=== PATIENT | male | born 1990 | race Caucasian/White ===

== ENCOUNTER 2018-11-15 08:18 | Inpatient (IN) | payer SELFPAY ==
[2018-11-15] VITALS (15 sets, daily range): BP systolic 90–119; BP diastolic 53–73
[~2018-11-15] VITALS: Ht 172.7 cm; Wt 78.0 kg
[2018-11-15] MEDS ORDERED: IV NORMAL SALINE 1000ML BAG 1,000 ML IV ONE (10:00)
[2018-11-15] MEDS: IV NORMAL SALINE 1000ML BAG 1,000 ML IV SCH (10:00)
--- NOTE | 2018-11-15 10:00 | NUR ---
Pt arrived to ICU per ambulance. A&OX4. Placed on ekg monitor. VSS. Temp of 102. Pt c/o generalized pain. Dr. Stafford paged and notified. Orders received.
[2018-11-15] MEDS: fentaNYL PF VIAL 100 MCG/2 ML VIAL IV PRN ×6 (10:18→22:41)
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
[2018-11-15] MEDS ORDERED: PIP/TAZO PER PHARMACY MC PRN (11:15)
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
[2018-11-15] MEDS ORDERED: PIPERACILLIN/TAZOBACTAM 3.375 GM in IV NORMAL SALINE 50ML 50 ML IV SCH (12:00)
[2018-11-15] MEDS: CEFEPIME HCL IV Push 1 GM VIAL. IVP SCH ×2 (12:23→21:51)
[2018-11-15] MEDS: VANCOMYCIN PER PHARMACY MC PRN ×4 (13:10→15:51)
--- NOTE | 2018-11-15 13:16 | NUR ---
Pharmacy Vancomycin Dosing Note S:Consulted to monitor and dose vancomycin started 11/15/18. O:QUINTON VILLAGOMEZ is a 28 year old M with Sepsis . Height: feet, inches Weight: 73kg [place] Body Weight: Adjusted Body Weight: Dosing Weight: Actual Other Antibiotics: CEFE[DRAGAN LABS: Last BUN: Last Creatinine: 73 Creatinine Clearance: 1.5 mL/min Last WBC: Last Procalcitonin: OREDERED. Tmax (past 24 hours): Microbiology: I/O: Drug Levels: Last level: on at Last dose given 11/15/18 at 0600 Vancomycin Dosing: Loading Dose: 1750 mg x1 Dosing Weight: Actual Target Trough: 10-20 A: Based on: [] LOADING DOSE GIVEN AT [facility] THIS AM P: 1. [g RX.ACTION] Vancomycin 1000 mg IV q24h 2. Follow up Trough level on 11/16/18 at 1730 3. Pharmacy will continue to monitor, follow and adjust therapy as needed. FROILAN SANCHEZ [facility], 11/15/18 1875
--- NOTE | 2018-11-15 13:20 | NUR ---
Pharmacy Vancomycin Dosing Note S:Consulted to monitor and dose vancomycin started 11/15/18. O:QUINTON VILLAGOMEZ is a 28 year old M with Sepsis . Height: feet, inches Weight: 72 kg [place] Body Weight: Adjusted Body Weight: Dosing Weight: Actual Other Antibiotics: CEFE[DRAGAN LABS: Last BUN: Last Creatinine: 73 Creatinine Clearance: 1.5 mL/min Last WBC: Last Procalcitonin: OREDERED. Tmax (past 24 hours): Microbiology: I/O: Drug Levels: Last level: on at Last dose given 11/15/18 at 0600 Vancomycin Dosing: Loading Dose: 1750 mg x1 Dosing Weight: Actual Target Trough: 15-20 A: Based on: []VANCOMYCIN 1.75GM IV BOLUS GIVEN AT [facility] THIS AM, P: 1. [g RX.ACTION] Vancomycin 1000 mg IV q24h 2. Follow up Trough level on 11/16/18 at 1730 3. Pharmacy will continue to monitor, follow and adjust therapy as needed. FROILAN SANCHEZ [facility], 11/15/18 1320
--- NOTE | 2018-11-15 13:23 | NUR ---
Pharmacy Vancomycin Dosing Note S:Consulted to monitor and dose vancomycin started 11/15/18. O:QUINTON VILLAGOMEZ is a 28 year old M with Sepsis . Height: feet, inches Weight: kg [place] Body Weight: Adjusted Body Weight: Dosing Weight: Actual Other Antibiotics: CEFE[DRAGAN LABS: Last BUN: Last Creatinine: 73 Creatinine Clearance: 1.5 mL/min Last WBC: Last Procalcitonin: OREDERED. Tmax (past 24 hours): Microbiology: I/O: Drug Levels: Last level: on at Last dose given 11/15/18 at 0600 Vancomycin Dosing: Loading Dose: 1750 mg x1 Dosing Weight: Actual Target Trough: 15-20 A: Based on: []VANCOMYCIN 1.75GM IV BOLUS GIVEN AT [facility], P: 1. [g RX.ACTION] Vancomycin 1000 mg IV q24h 2. Follow up Trough level on 11/16/18 at 1730 3. Pharmacy will continue to monitor, follow and adjust therapy as needed. FROILAN SANCHEZ [facility], 11/15/18 3643
[2018-11-15] MEDS: diphenhydrAMINE 50 MG/ML VIAL IVP PRN ×2 (14:46→20:43)
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
[2018-11-15] MEDS: VANCOMYCIN 1 GM in IV NORMAL SALINE 250ML 250 ML IV SCH (17:51)
[2018-11-15] MEDS: MORPHINE SULFATE 4 MG/ML VIAL. IV PRN (21:09)
[2018-11-15] MEDS ORDERED: PROPOFOL 0 ML IV ONE (23:09)
[2018-11-16] VITALS (15 sets, daily range): BP systolic 94–142; BP diastolic 51–97
[2018-11-16] MEDS: MORPHINE SULFATE 4 MG/ML VIAL. IV PRN ×6 (00:42→23:21)
[2018-11-16] MEDS: IV NORMAL SALINE 1000ML BAG 1,000 ML IV SCH (01:14)
[2018-11-16] MEDS: fentaNYL PF VIAL 100 MCG/2 ML VIAL IV PRN ×7 (02:48→22:01)
[2018-11-16] MEDS: diphenhydrAMINE 50 MG/ML VIAL IVP PRN ×4 (04:43→23:20)
[2018-11-16 05:30] LABS: BASO % 0 % (0-3); EOS % 1 % (0-3); HEMATOCRIT 30.2 % (39.0-53.0); HEMOGLOBIN 10.8 g/dL (13.0-17.5); LYMPH # 0.5 x10^3/uL (1.0-4.8); LYMPH % 11 % (24-48); MEAN CORPUSCULAR HEMOGLOBIN 33 pg (25-35); MEAN CORPUSCULAR HGB CONC 36 g/dL (31-37); MEAN CORPUSCULAR VOLUME 91 fL (79-100); MONO # 0.7 x10^3/uL (0.0-1.1); MONO % 17 % (0-9); NEUT # 3.1 x10^3uL (1.8-7.7); NEUT % 71 % (31-73); PLATELET COUNT 70 x10^3/uL (140-400); RED BLOOD COUNT 3.31 x10^6/uL (4.30-5.70); RED CELL DISTRIBUTION WIDTH 13.2 % (11.5-14.5); WHITE BLOOD COUNT 4.3 x10^3/uL (4.0-11.0)
[2018-11-16 05:54] LABS: ALBUMIN 2.2 g/dL (3.4-5.0); ALBUMIN/GLOBULIN RATIO 0.8 (1.0-1.7); CALCIUM 7.4 mg/dL (8.5-10.1); CREATININE 0.9 mg/dL (0.7-1.3); GFR 100.5; TOTAL BILIRUBIN 0.6 mg/dL (0.2-1.0); TOTAL PROTEIN 4.8 g/dL (6.4-8.2)
[2018-11-16 05:56] LABS: POTASSIUM 2.9 mmol/L (3.5-5.1)
[2018-11-16] MEDS: VANCOMYCIN 1 GM in IV NORMAL SALINE 250ML 250 ML IV SCH ×3 (06:38→22:00)
[2018-11-16] MEDS: CEFEPIME HCL IV Push 1 GM VIAL. IVP SCH ×3 (06:38→22:00)
[2018-11-16] MEDS ORDERED: POTASSIUM CHLORIDE 20 MEQ TABLET.ER. PO ONE ×3 (07:00→09:00)
[2018-11-16] MEDS: VANCOMYCIN PER PHARMACY MC PRN ×3 (07:20→07:28)
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
[2018-11-16] MEDS: LACTOBACILLUS RHAMNOSUS GG 1 CAPSULE. PO SCH ×2 (09:59→20:29)
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
[2018-11-16 12:16] LABS: CALCIUM 7.6 mg/dL (8.5-10.1); POTASSIUM 3.9 mmol/L (3.5-5.1)
[2018-11-16] MEDS: POTASSIUM CL 40MEQ IN 0.9%NACL 1,000 ML IV SCH (13:51)
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
[2018-11-16] MEDS: ACETAMINOPHEN 325 MG TABLET. PO PRN ×2 (18:24→22:00)
[2018-11-17] MEDS: POTASSIUM CL 40MEQ IN 0.9%NACL 1,000 ML IV SCH ×2 (01:50→18:03)
[2018-11-17] MEDS: fentaNYL PF VIAL 100 MCG/2 ML VIAL IV PRN ×3 (02:11→08:34)
[2018-11-17 02:19] VITALS: BP 100/66
[2018-11-17] MEDS: MORPHINE SULFATE 4 MG/ML VIAL. IV PRN ×5 (03:11→23:24)
[2018-11-17] MEDS: diphenhydrAMINE 50 MG/ML VIAL IVP PRN ×3 (05:14→21:25)
[2018-11-17] MEDS: CEFEPIME HCL IV Push 1 GM VIAL. IVP SCH ×3 (05:15→22:32)
[2018-11-17] MEDS: ACETAMINOPHEN 325 MG TABLET. PO PRN ×2 (05:22→23:24)
[2018-11-17 06:19] LABS: BASO % 0 % (0-3); EOS # 0.1 x10^3/uL (0.0-0.7); EOS % 2 % (0-3); HEMATOCRIT 31.6 % (39.0-53.0); LYMPH # 0.6 x10^3/uL (1.0-4.8); LYMPH % 12 % (24-48); MEAN CORPUSCULAR HEMOGLOBIN 32 pg (25-35); MEAN CORPUSCULAR HGB CONC 35 g/dL (31-37); MEAN CORPUSCULAR VOLUME 92 fL (79-100); MONO # 0.9 x10^3/uL (0.0-1.1); MONO % 16 % (0-9); NEUT # 3.8 x10^3uL (1.8-7.7); NEUT % 70 % (31-73); PLATELET COUNT 107 x10^3/uL (140-400); RED BLOOD COUNT 3.43 x10^6/uL (4.30-5.70); RED CELL DISTRIBUTION WIDTH 13.5 % (11.5-14.5); WHITE BLOOD COUNT 5.4 x10^3/uL (4.0-11.0)
[2018-11-17 06:29] LABS: ALBUMIN 2.2 g/dL (3.4-5.0); ALBUMIN/GLOBULIN RATIO 0.8 (1.0-1.7); CALCIUM 7.9 mg/dL (8.5-10.1); CREATININE 0.8 mg/dL (0.7-1.3); GFR 115.1; POTASSIUM 4.1 mmol/L (3.5-5.1); TOTAL BILIRUBIN 0.7 mg/dL (0.2-1.0); TOTAL PROTEIN 5.1 g/dL (6.4-8.2)
[2018-11-17 06:30] LABS: VANC TR 10.5 mcg/mL (10.0-20.0)
[2018-11-17] MEDS: VANCOMYCIN PER PHARMACY MC PRN ×2 (06:47→06:55)
--- NOTE | 2018-11-17 06:47 | NUR ---
Pharmacy Vancomycin Dosing Note S:Consulted to monitor and dose vancomycin started 11/15/18. O:QUINTON VILLAGOMEZ is a 28 year old M with Cellulitis . Height: 5 feet, 8 inches Weight: 69.083086 kg [place] Body Weight: 68.40 Adjusted Body Weight: 69.84 Dosing Weight: Actual Other Antibiotics: CEFE[DRAGAN LABS: Last BUN: Last Creatinine: >100 Creatinine Clearance: 0.9 mL/min Last WBC: 4.3 Last Procalcitonin: 4.8 Tmax (past 24 hours): 101.5 Microbiology: NONE ORDER I/O: 3960/4725 Drug Levels: Last Trough level: 10.3 on 11/16/18 at 1730 Last dose given 11/15/18 at 0600 Vancomycin Dosing: Loading Dose: 1750 mg x1 Dosing Weight: Actual Target Trough: 10-20 A: Based on: TROUGH P: 1. [g RX.ACTION] Vancomycin 1000 mg IV q8h 2. Follow up Trough level on 11/16/18 at 1730 3. Pharmacy will continue to monitor, follow and adjust therapy as needed. EMILY YATES [facility], 11/17/18 0647
--- NOTE | 2018-11-17 06:55 | NUR ---
Pharmacy Vancomycin Dosing Note S:Consulted to monitor and dose vancomycin started 11/15/18. O:QUINTON VILLAGOMEZ is a 28 year old M with Cellulitis Sepsis . Height: 5 feet, 8 inches Weight: 69.107535 kg [place] Body Weight: 68.40 Adjusted Body Weight: 69.84 Dosing Weight: Actual Other Antibiotics: CEFE[DRAGAN LABS: Last BUN: Last Creatinine: >100 Creatinine Clearance: 0.9 mL/min Last WBC: 4.3 Last Procalcitonin: 4.8 Tmax (past 24 hours): 101.5 Microbiology: NONE ORDER I/O: 3960/4725 Drug Levels: Last Trough level: 10.3 on 11/17/18 at 0530 Last dose given 11/15/18 at 0600 Vancomycin Dosing: Loading Dose: 1750 mg x1 Dosing Weight: Actual Target Trough: 15-20 A: Based on: []TROUGH P: 1. [g RX.ACTION] Vancomycin 1250 mg IV q8h 2. Follow up Trough level on 11/18/18 at 0530 3. Pharmacy will continue to monitor, follow and adjust therapy as needed. EMILY YATES [facility], 11/17/18 0655 Addendum: 11/17/18 at 0656 by EMILY YATES [facility] PHA INCREASED DOSE 1.25 GM Q8H TROUGH 11/18 0530 Signed: 11/17/18 at 0656 by EMILY YATES [facility] PHA
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
[2018-11-17 07:41] VITALS: BP 114/70
[2018-11-17] MEDS: VANCOMYCIN 1.25 GM in IV NORMAL SALINE 250ML 250 ML IV SCH ×3 (07:41→22:34)
[2018-11-17] MEDS: LACTOBACILLUS RHAMNOSUS GG 1 CAPSULE. PO SCH ×2 (09:00→22:33)
[2018-11-17] MEDS ORDERED: BENZOCAINE ONE 20% MUCOSAL SPRAY. (09:09)
[2018-11-17] MEDS ORDERED: LIDOCAINE 2% VISCOUS 15 ML SOLUTION. ONE (09:09)
[2018-11-17] MEDS ORDERED: LIDOCAINE 2% JELLY 6ML IN APPLICATOR. MM ONE (09:15)
[2018-11-17] MEDS ORDERED: BENZOCAINE ONE 20% MUCOSAL SPRAY. MM (09:30)
[2018-11-17] MEDS ORDERED: LIDOCAINE 2% VISCOUS 15 ML SOLUTION. SWSW ONE (09:30)
[2018-11-17] MEDS ORDERED: IV RINGERS,LACTATED 1000ML 1,000 ML IV SCH (10:00)
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
[2018-11-17] MEDS ORDERED: PROPOFOL 40 ML IV ONE (10:09)
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
--- NOTE | 2018-11-17 14:31 | CARD ---
MR#: [id number] Date of Study: 11/17/2018 Ordering Physician: TOPHER WALTON, Referring Physician: TERRY GAITAN Tech: Maru Paz JAE APPROVED REPORT EXAM: Two-dimensional and M-mode echocardiogram with Doppler and color Doppler. INDICATION Endocarditis Reason For Test : Rule out endocarditis. PROCEDURE After obtaining informed consent, patient underwent transesophageal echo in the PACU. Type of Sedation : General Anesthesia Sedation was administered by Dr Zhu. Sedation was achieved with Propofol 260mg intravenously. Throughout the procedure, the blood pressure, pulse oximetry, cardiac rhythm, and rate were monitored . LEFT VENTRICLE The left ventricle is normal size. There is normal left ventricular wall thickness. The left ventricu lar systolic function is normal. The Ejection Fraction is 60%. There is normal LV segmental wall aundrea on. RIGHT VENTRICLE The right ventricle is normal size. There is normal right ventricular wall thickness. The right ventr icular systolic function is normal. Small pericardial effusion. ATRIA The left atrium size is normal. The right atrium size is normal. There is a possible small PFO seen b y color imaging, agitated contrast saline was not performed on this study. There is no thrombus noted in the left atrial appendage. AORTIC VALVE The aortic valve is normal in structure and function. The aortic valve is trileaflet. Doppler and Col or Flow revealed no significant aortic regurgitation. There is no significant aortic valvular stenosi s. There is no aortic valvular vegetation. MITRAL VALVE The posterior mitral valve leaflet has a 1.10cm x 0.81cm endodensity on the leaflet. There is systoli c anterior motion of the mitral valve with a possible ruptured chordae seen in the LVOT. There is no evidence of mitral valve prolapse. There is no mitral valve stenosis. Doppler and Color-flow revealed mild mitral regurgitation. TRICUSPID VALVE The tricuspid valve is normal in structure and function. Doppler and Color Flow revealed trace tricus pid regurgitation. There is no tricuspid valve prolapse or vegetation. There is no tricuspid valve st enosis. PULMONIC VALVE The pulmonary valve is normal in structure and function. Doppler and Color Flow revealed no pulmonic valvular regurgitation. There is no pulmonic valvular stenosis. GREAT VESSELS The aortic root is normal in size. The ascending aorta is normal in size. Critical Notification Critical Value: No <Conclusion> The left ventricular systolic function is normal. The Ejection Fraction is 60%. There is normal LV segmental wall motion. Echogenic mass noted on posterior mitral valve leaflet measuring 1.10cm x 0.81cm consistent with en docarditis. Possible ruptured mitral valve chordae seen extending into left ventricular outflow tract in systole. Mild eccentric mitral regurgitation. Trace tricuspid regurgitation. There is small pericardial effusion. Signed by : Topher Walton, Electronically Approved : 11/17/2018 14:30:28
[2018-11-17 15:02] VITALS: BP 122/78
[2018-11-17 19:17] VITALS: BP 113/78
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
[2018-11-17 23:21] VITALS: BP 118/65
[2018-11-18 03:10] VITALS: BP 114/78
[2018-11-18] MEDS: POTASSIUM CL 40MEQ IN 0.9%NACL 1,000 ML IV SCH (03:16)
[2018-11-18] MEDS: MORPHINE SULFATE 4 MG/ML VIAL. IV PRN ×2 (03:17→07:57)
[2018-11-18] MEDS: diphenhydrAMINE 50 MG/ML VIAL IVP PRN ×4 (03:20→21:23)
[2018-11-18] MEDS: CEFEPIME HCL IV Push 1 GM VIAL. IVP SCH (05:26)
[2018-11-18 06:41] LABS: VANC TR 16.9 mcg/mL (10.0-20.0)
[2018-11-18] MEDS: VANCOMYCIN PER PHARMACY MC PRN (06:48)
--- NOTE | 2018-11-18 06:49 | NUR ---
Pharmacy Vancomycin Dosing Note S:Consulted to monitor and dose vancomycin started 11/15/18. O:QUINTON VILLAGOMEZ is a 28 year old M with Cellulitis Sepsis . Height: 5 feet, 8 inches Weight: 66.006708 kg [place] Body Weight: 68.40 Adjusted Body Weight: 69.84 Dosing Weight: Actual Other Antibiotics: CEFE[DRAGAN LABS: Last BUN: Last Creatinine: >100 Creatinine Clearance: 0.9 mL/min Last WBC: 4.3 Last Procalcitonin: 4.8 Tmax (past 24 hours): 101.5 Microbiology: NONE ORDER I/O: 3960/4725 Drug Levels: Last Trough level: 16.9 on 11/18/18 at 0530 Last dose given 11/15/18 at 0600 Vancomycin Dosing: Loading Dose: 1750 mg x1 Dosing Weight: Actual Target Trough: 15-20 A: Based on: [TROUGH] P: 1. CONTINUE Vancomycin 1250 mg IV q8h 2. Follow up Trough level IF NEEDED 3. Pharmacy will continue to monitor, follow and adjust therapy as needed. EMILY YATES RPH, 11/18/1849 Signed: 11/18/18 at 0649 by EMILY YATES RPH PHA
[2018-11-18 07:00] VITALS: BP 109/68
[2018-11-18] MEDS: VANCOMYCIN 1.25 GM in IV NORMAL SALINE 250ML 250 ML IV SCH ×3 (07:59→23:51)
[2018-11-18] MEDS: LACTOBACILLUS RHAMNOSUS GG 1 CAPSULE. PO SCH ×2 (08:00→21:18)
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
[2018-11-18 11:00] VITALS: BP 107/66
[2018-11-18] MEDS: oxyCODONE ER 10 MG TAB.ER.12H PO SCH ×2 (11:53→21:18)
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
[2018-11-18] MEDS: oxyCODONE IR 5 MG TABLET PO PRN ×3 (15:01→23:46)
--- NOTE | 2018-11-18 16:20 | PDOC ---
JUNIE ALVARADO SALES PERSON 11/18/18 1620: CARDIO Progress Notes Date and Time Date of Service 11/18/2018 Time of Evaluation 1220 Subjective Subjective: No Chest Pain, No shortness of breath, No Palpitations Vitals Vitals Vital Signs Date Time Temp Pulse Resp B/P (MAP) Pulse Ox O2 Delivery O2 Flow Rate FiO2 11/18/18 15:01 18 95 Room Air 11/18/18 11:00 99.7 92 107/66 (80) 99.7 11/18/18 08:00 2.0 Weight Weight [ ] Input and Output Intake and Output Intake and Output 11/18/18 07:00 Intake Total 1860 ml Output Total 6300 ml Balance -4440 ml Intake Oral 1160 ml IV Total 700 ml Output Urine Total 6300 ml Laboratory Labs Laboratory Tests Test 11/18/18 06:15 Vancomycin Level Trough 16.9 mcg/mL (10.0-20.0) Vancomycin Last Dose Date 11/17/18 Vancomycin Last Dose Time 2300 Microbiology Micro Microbiology 11/15/18 Blood Culture - Preliminary, Resulted 11/15/18 Blood Culture Result 1 (JOSE ROBERTO) - Preliminary, Resulted Physical Exam HEENT: Neck Supple W Full Motion Chest: Symmetric LUNGS: Clear to Auscultation Heart: S1S2, RRR (SR), murmurs (4/6 systolic murmur to apex) Abdomen: Soft N/T Extremities: No Edema, No Calf Tenderness Neurology: alert, oriented, follow commands Assessment Assessment 1. Elevated troponin: demand mediated, type 2 with culprits below. EF and WM nml 2. Infective endocarditis/sepsis/fever: noted with 1 cm vegetation to posterior MV leaflet. ID following 3. MR: with possible rupture chordae tendinae. at this time no surgical recom mendation per CTS. No arrhythmias so far 4. Substance abuse: uses IV heroin Recommendations 1. Antibiotics per ID 2. Discussed lifestyle modification and cessation of substance abuse. 3. Will need outpt reevaluation in 2 months. High risk for noncomplaince given his limited financial means. 4. Consult social service. 5. Supportive care TOPHER WALTON MD 11/19/18 1534: CARDIO Progress Notes Assessment Assessment Patient seen and examined 11/18/18. Agree with MUSEUM PREPARATOR's assessment and plan. Continue intravenous antibiotics per ID team. Plan repeat SAVANAH once the antibiotic course is completed. JUNIE ALVARADO APRN Nov 18, 2018 16:20 TOPHER WALTON MD November 19, 2018 15:34
[2018-11-18 19:34] VITALS: BP 119/75
[2018-11-18] MEDS: ACETAMINOPHEN 325 MG TABLET. PO PRN (19:42)
[2018-11-18 23:52] VITALS: BP 126/79
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
[2018-11-19 03:51] VITALS: BP 119/70
[2018-11-19 04:44] LABS: BASO % 1 % (0-3); EOS # 0.2 x10^3/uL (0.0-0.7); EOS % 2 % (0-3); HEMATOCRIT 31.8 % (39.0-53.0); LYMPH # 0.9 x10^3/uL (1.0-4.8); LYMPH % 13 % (24-48); MEAN CORPUSCULAR HEMOGLOBIN 32 pg (25-35); MEAN CORPUSCULAR HGB CONC 35 g/dL (31-37); MEAN CORPUSCULAR VOLUME 92 fL (79-100); MONO # 0.8 x10^3/uL (0.0-1.1); MONO % 11 % (0-9); NEUT # 5.1 x10^3uL (1.8-7.7); NEUT % 73 % (31-73); PLATELET COUNT 239 x10^3/uL (140-400); RED BLOOD COUNT 3.44 x10^6/uL (4.30-5.70); RED CELL DISTRIBUTION WIDTH 13.2 % (11.5-14.5); WHITE BLOOD COUNT 7.1 x10^3/uL (4.0-11.0)
[2018-11-19] MEDS: oxyCODONE IR 5 MG TABLET PO PRN ×3 (05:15→22:47)
[2018-11-19] MEDS: diphenhydrAMINE 50 MG/ML VIAL IVP PRN ×2 (05:15→10:55)
[2018-11-19 05:36] LABS: ALBUMIN 2.2 g/dL (3.4-5.0); ALBUMIN/GLOBULIN RATIO 0.6 (1.0-1.7); C-REACTIVE PROTEIN 92.3 mg/L (0-3.3); POTASSIUM 4.3 mmol/L (3.5-5.1); TOTAL BILIRUBIN 0.4 mg/dL (0.2-1.0); TOTAL PROTEIN 5.9 g/dL (6.4-8.2)
[2018-11-19] MEDS: VANCOMYCIN 1.25 GM in IV NORMAL SALINE 250ML 250 ML IV SCH (06:13)
[2018-11-19 07:00] VITALS: BP 108/70
[2018-11-19] MEDS: LACTOBACILLUS RHAMNOSUS GG 1 CAPSULE. PO SCH ×2 (08:28→20:36)
[2018-11-19] MEDS: ACETAMINOPHEN 325 MG TABLET. PO PRN ×2 (08:28→16:08)
[2018-11-19] MEDS: oxyCODONE ER 10 MG TAB.ER.12H PO SCH ×2 (08:28→20:36)
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
[2018-11-19] MEDS: CEFTAROLINE FOSAMIL 600 MG in IV NORMAL SALINE 250ML 250 ML IV SCH ×2 (10:55→11:00)
[2018-11-19 11:00] VITALS: BP 135/98
[2018-11-19] MEDS: DAPTOmycin (GENERIC) IVPB 400 MG in IV NORMAL SALINE 50ML 50 ML IV SCH (11:00)
--- NOTE | 2018-11-19 11:30 | NUR ---
SS following up with discharge planning. Pt is from home and is currently on room air. Pt is self pay. [facility]CF[facility] is following for self pay status. No discharge needs noted at this time. SS will continue to follow for pending discharge needs.
[2018-11-19 15:00] VITALS: BP 125/69
--- NOTE | 2018-11-19 19:02 | NUR ---
SPOKE TO DR. GAITAN REGARDING PTS UPPER LEFT LEG AND 4 BUMPS THAT ARE EXTREMELY SORE, SWOLLEN RED AND HARD. ORDERS GIVEN. PT TO HAVE PICC LINE PLACED TONIGHT DUE TO NO IV ACCESS PERIPHERALLY. DEAN FROM PAT TEAM CAME AND SPOKE WITH THE PT THIS SHIFT.
[2018-11-19 19:14] VITALS: BP 110/67
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
[2018-11-19 22:43] VITALS: BP 110/68
[2018-11-20] MEDS: CEFTAROLINE FOSAMIL 600 MG in IV NORMAL SALINE 250ML 250 ML IV SCH ×3 (00:02→21:06)
--- NOTE | 2018-11-20 00:10 | RAD ---
Indication:picc placement TECHNIQUE:Portable AP chest X-ray COMPARISON:None FINDINGS: Right-sided PICC line is seen with its tip at the cavoatrial junction. Heart is normal in size. Lungs are clear. No pneumothorax or pleural effusion. Visualized bony thorax is within normal limits. IMPRESSION: No acute pulmonary process. Electronically signed by: Sandeep Salgado DO (11/20/2018 12:07 AM) [facility]
[2018-11-20] MEDS: ONDANSETRON PF 4 MG/2 ML VIAL. IV PRN (00:16)
[2018-11-20] MEDS: diphenhydrAMINE 50 MG/ML VIAL IVP PRN ×4 (00:17→22:36)
[2018-11-20 03:00] VITALS: BP 120/76
[2018-11-20] MEDS: ACETAMINOPHEN 325 MG TABLET. PO PRN (04:01)
[2018-11-20] MEDS: oxyCODONE IR 5 MG TABLET PO PRN ×3 (04:02→16:24)
[2018-11-20 07:00] VITALS: BP 123/74
--- NOTE | 2018-11-20 07:56 | RAD ---
Left thigh ultrasound, 11/19/2018: HISTORY: Thigh lump and redness, recently drained The area of clinical concern in the lateral left thigh was carefully scanned. Along the inferior aspect of this process there is a small ill-defined collection of hypoechoic areas measuring less than 1 cm. This area was reportedly drained earlier today. The current findings suggest minimal residual poorly marginated fluid. More superiorly in this region there is a 4 mm hypoechoic area located approximately 1 cm deep to the skin surface. There is a suggestion of a thickened hyperechoic rim. No large drainable fluid collection is identified. Electronically signed by: Te Garcia MD (11/20/2018 7:53 AM) [facility]
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
[2018-11-20] MEDS: LACTOBACILLUS RHAMNOSUS GG 1 CAPSULE. PO SCH ×2 (08:16→21:07)
[2018-11-20] MEDS: oxyCODONE ER 10 MG TAB.ER.12H PO SCH ×2 (08:17→21:07)
[2018-11-20 11:00] VITALS: BP 127/78
[2018-11-20] MEDS: DAPTOmycin (GENERIC) IVPB 400 MG in IV NORMAL SALINE 50ML 50 ML IV SCH (11:19)
[2018-11-20 14:51] VITALS: BP 131/80
[2018-11-20 19:21] VITALS: BP 123/71
[2018-11-20 22:21] VITALS: BP 115/70
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
[2018-11-21 03:20] VITALS: BP 115/66
[2018-11-21 07:36] VITALS: BP 116/75
[2018-11-21] MEDS: diphenhydrAMINE 50 MG/ML VIAL IVP PRN ×2 (08:38→16:23)
[2018-11-21] MEDS: oxyCODONE ER 10 MG TAB.ER.12H PO SCH ×2 (08:38→21:43)
[2018-11-21] MEDS: LACTOBACILLUS RHAMNOSUS GG 1 CAPSULE. PO SCH ×2 (08:38→21:43)
[2018-11-21] MEDS: CEFTAROLINE FOSAMIL 600 MG in IV NORMAL SALINE 250ML 250 ML IV SCH (08:39)
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
[2018-11-21 10:22] LABS: HEMATOCRIT 27.6 % (39.0-53.0); HEMOGLOBIN 9.6 g/dL (13.0-17.5); RED BLOOD COUNT 2.98 x10^6/uL (4.30-5.70); RED CELL DISTRIBUTION WIDTH 13.1 % (11.5-14.5); WHITE BLOOD COUNT 7.8 x10^3/uL (4.0-11.0)
[2018-11-21 10:39] LABS: ALBUMIN/GLOBULIN RATIO 0.5 (1.0-1.7); CALCIUM 7.4 mg/dL (8.5-10.1); POTASSIUM 4.3 mmol/L (3.5-5.1); TOTAL BILIRUBIN 0.5 mg/dL (0.2-1.0); TOTAL PROTEIN 5.8 g/dL (6.4-8.2)
[2018-11-21] MEDS: DAPTOmycin (GENERIC) IVPB 400 MG in IV NORMAL SALINE 50ML 50 ML IV SCH (10:45)
[2018-11-21 11:00] VITALS: BP 125/82
--- NOTE | 2018-11-21 12:14 | NUR ---
SS following up with discharge planning. Pt's RN contacted SS and reported that per ID pt needs 6-8 weeks of IV Dapto set up as outpatient at [facility]. Pt is self pay. SS contacted Chelsey Poe at [facility] and made request. [facility] contacted SS and reported that they could not accommodate pt's needs.
[2018-11-21 15:00] VITALS: BP 107/67
[2018-11-21] MEDS: oxyCODONE IR 5 MG TABLET PO PRN ×2 (16:23→20:03)
[2018-11-21 19:32] VITALS: BP 120/69
[2018-11-21] MEDS: IV NORMAL SALINE 1000ML BAG 1,000 ML IV SCH (20:03)
[2018-11-21] MEDS: ACETAMINOPHEN 325 MG TABLET. PO PRN (20:03)
[2018-11-21 20:22] LABS: CALCIUM 7.2 mg/dL (8.5-10.1); CREATININE 4.5 mg/dL (0.7-1.3); GFR 15.7; POTASSIUM 4.5 mmol/L (3.5-5.1)
--- NOTE | 2018-11-21 22:47 | NUR ---
Dr. Stafford was notified at beginning of shift of lab results from day shift of a notable change in patient creatinine and BUN from yesterday. A bladder scan was done and revealed 230cc, and stat labs were redrawn to confirm results. New lab results and scan results were reported to physician. Orders were received to contact infectious disease consult for antibiotic dose adjustment and a renal consult for the increased creatinine. IVF were also ordered and started by physician. Both consults were informed and orders also received from them.
[2018-11-21 22:57] VITALS: BP 112/64
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
[2018-11-22] MEDS: ACETAMINOPHEN 325 MG TABLET. PO PRN (00:44)
[2018-11-22] MEDS: oxyCODONE IR 5 MG TABLET PO PRN ×3 (00:44→22:32)
[2018-11-22 02:40] VITALS: BP 100/51
[2018-11-22 05:41] LABS: CALCIUM 7.4 mg/dL (8.5-10.1); CREATININE 4.8 mg/dL (0.7-1.3); GFR 14.6; POTASSIUM 4.5 mmol/L (3.5-5.1)
[2018-11-22] MEDS: IV NORMAL SALINE 1000ML BAG 1,000 ML IV SCH ×2 (06:16→17:42)
--- NOTE | 2018-11-22 06:18 | NUR ---
Pt bladder scanned at this time. His initial bladder scan was around 200 at beginning of shift. He voided 300 overnight. However he did receive 1000 in IVF overnight and has hx of retention. Bladder scan at this time was 306. He has no urge to void at this time. Will relay to oncoming nurse for need of pt to void in the next few hours.
[2018-11-22 07:40] VITALS: BP 111/66
--- NOTE | 2018-11-22 07:41 | RAD ---
EXAM: Vann scale and color Doppler renal artery sonogram. HISTORY: Renal insufficiency. TECHNIQUE: Vann scale and color Doppler sonographic imaging of the kidneys and renal arteries with spectral analysis was performed. COMPARISON: None. FINDINGS: The right kidney measures 15.4 cm [id number]. The left kidney measures 15.0 cm [id number]. There is echogenic renal parenchyma. No solid or cystic renal lesion is seen. There is no hydronephrosis. The peak systolic velocity within the right renal artery is 167 cm/s. The peak systolic velocity within the left renal artery is 155 cm/s. There are normal renal artery to aorta velocity ratios. IMPRESSION: 1. No Doppler evidence of greater than 60 percent stenosis within the renal arteries. 2. Echogenic renal fragment. This can be seen with medical renal disease. 3. Prominent renal size. This may be within limits for patient body habitus. Electronically signed by: Theresa Frost MD (11/22/2018 7:37 AM) [facility]
[2018-11-22] MEDS: LACTOBACILLUS RHAMNOSUS GG 1 CAPSULE. PO SCH ×2 (08:35→20:54)
[2018-11-22] MEDS: oxyCODONE ER 10 MG TAB.ER.12H PO SCH ×2 (08:36→20:55)
[2018-11-22 08:40] LABS: BILIRUBIN,URINE NEGATIVE (NEG); CLARITY,URINE CLEAR; COLOR,URINE YELLOW; NITRITE,URINE NEGATIVE (NEG); PROTEIN,URINE 100 mg/dL (NEG-TRACE); UROBILINOGEN,URINE 0.2 mg/dL (0.2 mg/dL)
[2018-11-22] MEDS: DAPTOmycin (GENERIC) IVPB 400 MG in IV NORMAL SALINE 50ML 50 ML IV SCH (08:46)
[2018-11-22 08:57] LABS: HYALINE CASTS, URINE FEW /HPF
[2018-11-22 08:58] LABS: SQUAMOUS EPITHELIAL CELL,UR FEW /LPF
[2018-11-22 09:04] LABS: GRANULAR CASTS,URINE OCCASIONAL /HPF
[2018-11-22 09:18] LABS: BACTERIA,URINE MOD /HPF (0-FEW); WAXY CASTS,URINE OCCASIONAL /HPF
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
[2018-11-22 11:25] VITALS: BP 104/71
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
[2018-11-22 15:36] VITALS: BP 112/60
[2018-11-22 18:34] VITALS: BP 108/61
[2018-11-22 23:00] VITALS: BP 120/72
--- NOTE | 2018-11-23 00:21 | NUR ---
CHANGE OF CARE NOTE: Pt in bed with no c/o pain at this time. agree with previous assessment will resume care and continue to monitor pt.
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
[2018-11-23 02:50] VITALS: BP 110/68
[2018-11-23] MEDS: IV NORMAL SALINE 1000ML BAG 1,000 ML IV SCH ×3 (04:19→21:45)
[2018-11-23 06:38] LABS: CALCIUM 7.5 mg/dL (8.5-10.1); CREATININE 4.6 mg/dL (0.7-1.3); GFR 15.3; POTASSIUM 4.4 mmol/L (3.5-5.1)
[2018-11-23 07:50] VITALS: BP 106/62
[2018-11-23] MEDS: LACTOBACILLUS RHAMNOSUS GG 1 CAPSULE. PO SCH ×2 (08:40→21:16)
[2018-11-23] MEDS: oxyCODONE ER 10 MG TAB.ER.12H PO SCH ×2 (08:40→21:17)
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
[2018-11-23 10:24] VITALS: BP 105/55
--- NOTE | 2018-11-23 12:02 | PDOC ---
Renal-Progress Notes Subjective Notes Notes NO NEW COMPLAINTS History of Present Illness Hx of present illness STABLE Vitals Vitals Vital Signs Date Time Temp Pulse Resp B/P (MAP) Pulse Ox O2 Delivery O2 Flow Rate FiO2 11/23/18 10:24 98.4 75 18 105/55 (72) 97 Room Air 98.4 Weight Weight [ ] I.O. Intake and Output Intake and Output 11/23/18 07:00 Intake Total 1240 ml Output Total 500 ml Balance 740 ml Intake Oral 1240 ml Output Urine Total 500 ml # Voids 3 Labs Labs Laboratory Tests Test 11/23/18 05:30 Sodium Level 133 mmol/L (136-145) Potassium Level 4.4 mmol/L (3.5-5.1) Chloride Level 102 mmol/L (98-107) Carbon Dioxide Level 20 mmol/L (21-32) Anion Gap 11 (6-14) Blood Urea Nitrogen 59 mg/dL (8-26) Creatinine 4.6 mg/dL (0.7-1.3) Estimated GFR (Cockcroft-Gault) 15.3 Glucose Level 123 mg/dL (70-99) Calcium Level 7.5 mg/dL (8.5-10.1) Creatine Kinase 23 U/L (39-308) Micro Micro Microbiology 11/20/18 Blood Culture - Preliminary, Resulted NO GROWTH AFTER 3 DAYS Review of Systems Constitutional: yes: alert, oriented Ears/Nose/Throat: Yes: no symptom reported Eyes: Yes: no symptom reported Pulmonary: Yes no symptom reported Cardiovascular: Yes no symptom reported Gastrointestional: Yes: no symptom reported Genitourinary: Yes: no symptom reported Musculoskeletal: Yes: no symptom reported Skin: Yes no symptom reported Psychiatric/Neurological: Yes: no symptom reported Endocrine: Yes: no symptom reported Physical Exam General Appearance: no apparent distress Skin: warm Respiratory: bilateral CTA Heart: S1S2 Abdomen: soft, bowel sounds present Genitourinary: bladder flat Extremities: pulses present Neurology: alert, oriented, follow commands Assessment Assessment IMP DIANNE WITH CR OF 4.6-NON OLIGURIC-ATN VS NEPHRITIS RECENT URINARY RETENTION WITH BLANCO NEED-OUT NOW IV DRUG USE ENDOCARDITIS SPLENIC INFARCTS PLAN UA HYDRATION ANTIBIOTICS RENAL SCAN PENDING IF RENAL FXN NOT BETTER BY AM WILL ORDER RENAL BIOPSY UPDATED PT CIARAN GARCÍA MD November 23, 2018 12:02
[2018-11-23] MEDS: oxyCODONE IR 5 MG TABLET PO PRN ×3 (14:31→22:59)
[2018-11-23 15:06] VITALS: BP 109/57
[2018-11-23 20:05] VITALS: BP 118/66
[2018-11-23 23:05] VITALS: BP 139/85
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
[2018-11-24] VITALS (15 sets, daily range): BP systolic 110–135; BP diastolic 61–83
[2018-11-24] MEDS: oxyCODONE IR 5 MG TABLET PO PRN ×4 (04:53→23:14)
[2018-11-24 05:39] LABS: HEMATOCRIT 27.5 % (39.0-53.0); HEMOGLOBIN 9.6 g/dL (13.0-17.5); RED BLOOD COUNT 2.98 x10^6/uL (4.30-5.70); WHITE BLOOD COUNT 10.2 x10^3/uL (4.0-11.0)
[2018-11-24 05:52] LABS: CREATININE 4.3 mg/dL (0.7-1.3); GFR 16.5; POTASSIUM 4.8 mmol/L (3.5-5.1)
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
[2018-11-24] MEDS: DAPTOmycin (GENERIC) IVPB 400 MG in IV NORMAL SALINE 50ML 50 ML IV SCH (09:17)
[2018-11-24] MEDS: LACTOBACILLUS RHAMNOSUS GG 1 CAPSULE. PO SCH ×2 (09:17→22:07)
[2018-11-24] MEDS: oxyCODONE ER 10 MG TAB.ER.12H PO SCH ×2 (09:17→22:07)
--- NOTE | 2018-11-24 09:59 | RAD ---
Radionuclide renal scan, 11/23/2018: HISTORY: Acute renal insufficiency The study is just now being presented for review. Imaging of the kidneys was performed following IV injection of 10 mCi of technetium 99m MAG3. There is prompt symmetric perfusion of the kidneys. Uptake of the radionuclide by the kidneys is slow with progressing increased activity in both kidneys over 30 minutes. The pattern is symmetric and is compatible with medical renal disease. Bladder activity does develop. IMPRESSION: Slow uptake of the radionuclide by both kidneys and severe bilateral parenchymal retention in a symmetric pattern compatible with medical renal disease. Electronically signed by: Te Garcia MD (11/24/2018 9:56 AM) [facility]
--- NOTE | 2018-11-24 10:50 | PDOC ---
Renal-Progress Notes Subjective Notes Notes NO NEW COMPLAINTS History of Present Illness Hx of present illness NO CHANGE Vitals Vitals Vital Signs Date Time Temp Pulse Resp B/P (MAP) Pulse Ox O2 Delivery O2 Flow Rate FiO2 11/24/18 09:18 Room Air 11/24/18 07:00 98.5 86 18 110/61 (77) 94 98.5 Weight Weight [ ] I.O. Intake and Output Intake and Output 11/24/18 07:00 Intake Total 4318 ml Output Total 2350 ml Balance 1968 ml Intake Oral 2118 ml IV Total 2200 ml Output Urine Total 2350 ml # Bowel Movements 1 Labs Labs Laboratory Tests Test 11/24/18 05:00 White Blood Count 10.2 x10^3/uL (4.0-11.0) Red Blood Count 2.98 x10^6/uL (4.30-5.70) Hemoglobin 9.6 g/dL (13.0-17.5) Hematocrit 27.5 % (39.0-53.0) Mean Corpuscular Volume 92 fL (79-100) Mean Corpuscular Hemoglobin 32 pg (25-35) Mean Corpuscular Hemoglobin Concent 35 g/dL (31-37) Red Cell Distribution Width 13.0 % (11.5-14.5) Platelet Count 412 x10^3/uL (140-400) Sodium Level 137 mmol/L (136-145) Potassium Level 4.8 mmol/L (3.5-5.1) Chloride Level 104 mmol/L (98-107) Carbon Dioxide Level 17 mmol/L (21-32) Anion Gap 16 (6-14) Blood Urea Nitrogen 55 mg/dL (8-26) Creatinine 4.3 mg/dL (0.7-1.3) Estimated GFR (Cockcroft-Gault) 16.5 Glucose Level 119 mg/dL (70-99) Calcium Level 8.0 mg/dL (8.5-10.1) Micro Micro Microbiology 11/20/18 Blood Culture - Preliminary, Resulted NO GROWTH AFTER 4 DAYS Review of Systems Constitutional: yes: alert, oriented Ears/Nose/Throat: Yes: no symptom reported Eyes: Yes: no symptom reported Pulmonary: Yes no symptom reported Cardiovascular: Yes no symptom reported Gastrointestional: Yes: no symptom reported Genitourinary: Yes: no symptom reported Musculoskeletal: Yes: no symptom reported Skin: Yes no symptom reported Psychiatric/Neurological: Yes: no symptom reported Endocrine: Yes: no symptom reported Physical Exam General Appearance: no apparent distress Skin: warm Respiratory: bilateral CTA Heart: S1S2 Abdomen: soft, bowel sounds present Genitourinary: bladder flat Extremities: pulses present Neurology: alert, oriented, follow commands Assessment Assessment IMP DIANNE WITH CR OF 4.3-NON OLIGURIC-ATN VS NEPHRITIS RECENT URINARY RETENTION WITH BLANCO NEED-OUT NOW IV DRUG USE ENDOCARDITIS SPLENIC INFARCTS PLAN UA HYDRATION ANTIBIOTICS RENAL SCAN PENDING RENAL BIOPSY ORDERED UPDATED PT CIARAN GARCÍA MD November 24, 2018 10:50
[2018-11-24 11:30] LABS: PROTHROMBIN TIME PATIENT 14.9 SEC (11.7-14.0)
--- NOTE | 2018-11-24 12:14 | NUR ---
SS following up with discharge planning. Pt is self pay and has a history of IV heroin use. Pt is needing outpatient IV Dapto for 6-8 weeks per ID. Pt is from [place]. Pt was denied at [facility] for outpatient set up at this time. Pt's RN reported that pt's dose has been changed to every other day. SS contacted [facility] again to discuss. SS has received no return call at this time. SS supervisor composing room notified. SS will continue to follow for discharge planning.
[2018-11-24] MEDS: IV NORMAL SALINE 1000ML BAG 1,000 ML IV SCH (13:03)
[2018-11-24] MEDS ORDERED: LIDOCAINE WITH 8.4% SOD BICARB 3 ML DISP.SYRIN. ONE (14:24)
[2018-11-24] MEDS ORDERED: MIDAZOLAM HCL/PF 2 MG/2 ML VIAL. ONE (14:36)
[2018-11-24] MEDS ORDERED: fentaNYL PF VIAL 100 MCG/2 ML VIAL ONE (14:36)
[2018-11-24] MEDS ORDERED: LIDOCAINE WITH 8.4% SOD BICARB 3 ML DISP.SYRIN. IJ ONE (15:00)
[2018-11-24] MEDS ORDERED: MIDAZOLAM HCL/PF 2 MG/2 ML VIAL. IV ONE (15:00)
[2018-11-24] MEDS ORDERED: fentaNYL PF VIAL 100 MCG/2 ML VIAL IV ONE (15:00)
--- NOTE | 2018-11-24 15:30 | RAD ---
Ultrasound guided left kidney biopsy 11/24/2018 Indication: Acute renal injury Discussion: The risks and benefits of the procedure were discussed the patient. Informed consent was obtained. A timeout procedure was performed. Ultrasound evaluation demonstrates unremarkable appearance of the left kidney. The overlying skin was prepped and draped using sterile barrier technique. 1% lidocaine was administered for local anesthesia. Under direct ultrasound guidance a 17-gauge guiding needles advanced to the peripheral inferior renal cortex. Multiple 18-gauge core biopsy samples were obtained and divided amongst formalin and Carmen 's solution. Gelfoam embolization of the biopsy tract was performed as a guiding needle was removed. Manual pressure was held. No immediate complications were identified. The procedure was performed under conscious sedation, including continuous cardiopulmonary monitoring via a dedicated sedation nurse. Face to face sedation time : 20 minutes Impression: Ultrasound guided left kidney biopsy
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
[2018-11-25 02:46] VITALS: BP 127/76
[2018-11-25 03:57] LABS: CALCIUM 8.2 mg/dL (8.5-10.1); CREATININE 4.2 mg/dL (0.7-1.3); POTASSIUM 4.7 mmol/L (3.5-5.1)
[2018-11-25] MEDS: IV NORMAL SALINE 1000ML BAG 1,000 ML IV SCH ×2 (05:16→12:46)
[2018-11-25 07:00] VITALS: BP 130/82
[2018-11-25] MEDS: ACETAMINOPHEN 325 MG TABLET. PO PRN (07:55)
[2018-11-25] MEDS: oxyCODONE ER 10 MG TAB.ER.12H PO SCH ×2 (07:55→19:34)
[2018-11-25] MEDS: LACTOBACILLUS RHAMNOSUS GG 1 CAPSULE. PO SCH ×2 (07:55→19:34)
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
[2018-11-25] MEDS: oxyCODONE IR 5 MG TABLET PO PRN ×2 (09:40→15:00)
[2018-11-25 11:00] VITALS: BP 118/65
--- NOTE | 2018-11-25 11:11 | PDOC ---
Renal-Progress Notes Subjective Notes Notes NO NEW COMPLAINTS History of Present Illness Hx of present illness STABLE Vitals Vitals Vital Signs Date Time Temp Pulse Resp B/P (MAP) Pulse Ox O2 Delivery O2 Flow Rate FiO2 11/25/18 10:42 Room Air 11/25/18 07:00 99.4 86 16 130/82 (98) 96 99.4 11/25/18 02:07 2.0 Weight Weight [ ] I.O. Intake and Output Intake and Output 11/25/18 07:00 Intake Total 1170 ml Output Total 1800 ml Balance -630 ml Intake Oral 120 ml IV Total 1050 ml Output Urine Total 1800 ml Labs Labs Laboratory Tests Test 11/25/18 03:40 Sodium Level 135 mmol/L (136-145) Potassium Level 4.7 mmol/L (3.5-5.1) Chloride Level 105 mmol/L (98-107) Carbon Dioxide Level 18 mmol/L (21-32) Anion Gap 12 (6-14) Blood Urea Nitrogen 47 mg/dL (8-26) Creatinine 4.2 mg/dL (0.7-1.3) Estimated GFR (Cockcroft-Gault) 17.0 Glucose Level 106 mg/dL (70-99) Calcium Level 8.2 mg/dL (8.5-10.1) Micro Micro Microbiology 11/20/18 Blood Culture - Final, Complete NO GROWTH AFTER 5 DAYS Review of Systems Constitutional: yes: alert, oriented Ears/Nose/Throat: Yes: no symptom reported Eyes: Yes: no symptom reported Pulmonary: Yes no symptom reported Cardiovascular: Yes no symptom reported Gastrointestional: Yes: no symptom reported Genitourinary: Yes: no symptom reported Musculoskeletal: Yes: no symptom reported Skin: Yes no symptom reported Psychiatric/Neurological: Yes: no symptom reported Endocrine: Yes: no symptom reported Physical Exam General Appearance: no apparent distress Skin: warm Respiratory: bilateral CTA Heart: S1S2 Abdomen: soft, bowel sounds present Genitourinary: bladder flat Extremities: pulses present Neurology: alert, oriented, follow commands Assessment Assessment IMP DIANNE WITH CR OF 4.3-NON OLIGURIC-ATN VS NEPHRITIS RECENT URINARY RETENTION WITH BLANCO NEED-OUT NOW IV DRUG USE ENDOCARDITIS SPLENIC INFARCTS S/P RENAL BX PLAN UA HYDRATION ANTIBIOTICS RENAL SCAN NOT VERY HELPFUL RENAL BIOPSY RESULTS PENDING WILL START STEROIDS UPDATED PT CIARAN GARCÍA MD November 25, 2018 11:11
[2018-11-25] MEDS ORDERED: predniSONE 20 MG TABLET PO ONE (11:15)
--- NOTE | 2018-11-25 13:27 | NUR ---
SS following up with discharge planning. The [facility] in [place] unable to provide outpatient IV Dapto for pt. SS discussed with Mayte Engel in pharmacy at [facility] and was notified that the Daptomycin is available for pt to receive at [facility]. Dr. Hagan contacted for script. SS contacted outpatient services and notified and will send referral once script is received. SS met with pt to discuss. Pt reported that he would find transportation to and from [place] to receive the medications every other day and was agreeable. Pt's RN and case management notified.
--- NOTE | 2018-11-25 13:55 | NUR ---
SS following up with discharge planning. SS received script for Daptomycin. SS phoned and faxed script for Daptomycin and referral to outpatient services at fax [phone].
[2018-11-25 15:00] VITALS: BP 128/84
[2018-11-25] MEDS: diphenhydrAMINE 50 MG/ML VIAL IVP PRN (19:33)
[2018-11-25] MEDS: predniSONE 20 MG TABLET PO SCH (19:34)
[2018-11-25 19:35] VITALS: BP 130/77
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
[2018-11-25 22:45] VITALS: BP 118/68
[2018-11-26 03:40] VITALS: BP 129/78
[2018-11-26] MEDS: ONDANSETRON PF 4 MG/2 ML VIAL. IV PRN (03:54)
[2018-11-26] MEDS: IV NORMAL SALINE 1000ML BAG 1,000 ML IV SCH ×3 (03:54→19:40)
[2018-11-26] MEDS: oxyCODONE IR 5 MG TABLET PO PRN ×3 (03:54→16:16)
[2018-11-26 04:47] LABS: CALCIUM 8.3 mg/dL (8.5-10.1); CREATININE 3.9 mg/dL (0.7-1.3); GFR 18.5
[2018-11-26] MEDS ORDERED: LACTULOSE 20 GM/30 ML SOLUTION. PO PRN (05:45)
[2018-11-26] MEDS ORDERED: SODIUM POLYSTYRENE SULFONATE 15 GM/60 ML ORAL.SUSP. PO ONE (06:00)
[2018-11-26 07:00] VITALS: BP 117/70
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
[2018-11-26] MEDS: DAPTOmycin (GENERIC) IVPB 400 MG in IV NORMAL SALINE 50ML 50 ML IV SCH (08:51)
[2018-11-26] MEDS: LACTOBACILLUS RHAMNOSUS GG 1 CAPSULE. PO SCH ×2 (08:52→19:38)
[2018-11-26] MEDS: oxyCODONE ER 10 MG TAB.ER.12H PO SCH ×2 (08:52→19:39)
--- NOTE | 2018-11-26 10:27 | PDOC ---
Renal-Progress Notes Subjective Notes Notes NO NEW COMPLAINTS History of Present Illness Hx of present illness STABLE BUT ILL Vitals Vitals Vital Signs Date Time Temp Pulse Resp B/P (MAP) Pulse Ox O2 Delivery O2 Flow Rate FiO2 11/26/18 08:00 Room Air 11/26/18 07:00 97.9 72 18 117/70 (86) 95 97.9 11/26/18 04:54 2.0 Weight Weight [ ] I.O. Intake and Output Intake and Output 11/26/18 06:59 Intake Total 4120 ml Output Total 2550 ml Balance 1570 ml Intake Oral 1720 ml Other 2400 ml Output Urine Total 2550 ml Labs Labs Laboratory Tests Test 11/26/18 03:45 Sodium Level 136 mmol/L (136-145) Potassium Level 6.0 mmol/L (3.5-5.1) Chloride Level 106 mmol/L (98-107) Carbon Dioxide Level 18 mmol/L (21-32) Anion Gap 12 (6-14) Blood Urea Nitrogen 49 mg/dL (8-26) Creatinine 3.9 mg/dL (0.7-1.3) Estimated GFR (Cockcroft-Gault) 18.5 Glucose Level 125 mg/dL (70-99) Calcium Level 8.3 mg/dL (8.5-10.1) Micro Micro Microbiology 11/20/18 Blood Culture - Final, Complete NO GROWTH AFTER 5 DAYS Review of Systems Constitutional: yes: alert, oriented Ears/Nose/Throat: Yes: no symptom reported Eyes: Yes: no symptom reported Pulmonary: Yes no symptom reported Cardiovascular: Yes no symptom reported Gastrointestional: Yes: no symptom reported Genitourinary: Yes: no symptom reported Musculoskeletal: Yes: no symptom reported Skin: Yes no symptom reported Psychiatric/Neurological: Yes: no symptom reported Endocrine: Yes: no symptom reported Physical Exam General Appearance: no apparent distress Skin: warm Respiratory: bilateral CTA Heart: S1S2 Abdomen: soft, bowel sounds present Genitourinary: bladder flat Extremities: pulses present Neurology: alert, oriented, follow commands Assessment Assessment IMP HYPERKALEMIA DIANNE DUE TO INFECTIVE ENDOCARDITIS RELATED GN RECENT URINARY RETENTION WITH BLANCO NEED-OUT NOW IV DRUG USE ENDOCARDITIS SPLENIC INFARCTS S/P RENAL BX PLAN HYDRATION KAYEXALATE ANTIBIOTICS RENAL SCAN NOT VERY HELPFUL CONT STEROIDS UPDATED PT D/W ATTENDING CIARAN GARCÍA MD November 26, 2018 10:27
[2018-11-26 11:00] VITALS: BP 121/81
[2018-11-26 12:16] LABS: CALCIUM 8.4 mg/dL (8.5-10.1); CREATININE 3.8 mg/dL (0.7-1.3); GFR 19.1
[2018-11-26 12:20] LABS: POTASSIUM 4.8 mmol/L (3.5-5.1)
[2018-11-26 15:00] VITALS: BP 121/79
[2018-11-26] MEDS: diphenhydrAMINE 50 MG/ML VIAL IVP PRN ×2 (16:23→22:14)
[2018-11-26 19:24] VITALS: BP 126/77
[2018-11-26] MEDS: predniSONE 20 MG TABLET PO SCH (19:38)
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
[2018-11-26 23:00] VITALS: BP 126/90
[2018-11-27] MEDS: oxyCODONE IR 5 MG TABLET PO PRN ×3 (00:26→13:36)
[2018-11-27 03:01] VITALS: BP 132/87
[2018-11-27] MEDS: diphenhydrAMINE 50 MG/ML VIAL IVP PRN (04:31)
[2018-11-27] MEDS: IV NORMAL SALINE 1000ML BAG 1,000 ML IV SCH (04:32)
[2018-11-27 04:59] LABS: HEMATOCRIT 26.2 % (39.0-53.0); RED BLOOD COUNT 2.82 x10^6/uL (4.30-5.70); RED CELL DISTRIBUTION WIDTH 13.1 % (11.5-14.5); WHITE BLOOD COUNT 5.9 x10^3/uL (4.0-11.0)
[2018-11-27 05:22] LABS: CALCIUM 8.1 mg/dL (8.5-10.1); CREATININE 3.3 mg/dL (0.7-1.3); GFR 22.4
[2018-11-27 07:00] VITALS: BP 121/77
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
--- NOTE | 2018-11-27 08:58 | PDOC ---
Renal-Progress Notes Subjective Notes Notes NO NEW COMPLAINTS History of Present Illness Hx of present illness IMPROVED Vitals Vitals Vital Signs Date Time Temp Pulse Resp B/P (MAP) Pulse Ox O2 Delivery O2 Flow Rate FiO2 11/27/18 07:00 97.7 65 121/77 (92) 94 Room Air 97.7 11/27/18 05:31 18 2.0 Weight Weight [ ] I.O. Intake and Output Intake and Output 11/27/18 07:00 Intake Total 3920 ml Output Total 2000 ml Balance 1920 ml Intake Oral 1480 ml Other 2440 ml Output Urine Total 2000 ml Labs Labs Laboratory Tests Test 11/26/18 11:43 11/27/18 04:40 Sodium Level 136 mmol/L (136-145) 140 mmol/L (136-145) Potassium Level 4.8 mmol/L (3.5-5.1) 5.0 mmol/L (3.5-5.1) Chloride Level 106 mmol/L (98-107) 108 mmol/L (98-107) Carbon Dioxide Level 18 mmol/L (21-32) 18 mmol/L (21-32) Anion Gap 12 (6-14) 14 (6-14) Blood Urea Nitrogen 50 mg/dL (8-26) 46 mg/dL (8-26) Creatinine 3.8 mg/dL (0.7-1.3) 3.3 mg/dL (0.7-1.3) Estimated GFR (Cockcroft-Gault) 19.1 22.4 Glucose Level 113 mg/dL (70-99) 138 mg/dL (70-99) Calcium Level 8.4 mg/dL (8.5-10.1) 8.1 mg/dL (8.5-10.1) White Blood Count 5.9 x10^3/uL (4.0-11.0) Red Blood Count 2.82 x10^6/uL (4.30-5.70) Hemoglobin 9.0 g/dL (13.0-17.5) Hematocrit 26.2 % (39.0-53.0) Mean Corpuscular Volume 93 fL (79-100) Mean Corpuscular Hemoglobin 32 pg (25-35) Mean Corpuscular Hemoglobin Concent 34 g/dL (31-37) Red Cell Distribution Width 13.1 % (11.5-14.5) Platelet Count 447 x10^3/uL (140-400) Micro Micro Microbiology 11/20/18 Blood Culture - Final, Complete NO GROWTH AFTER 5 DAYS Review of Systems Constitutional: yes: alert, oriented Ears/Nose/Throat: Yes: no symptom reported Eyes: Yes: no symptom reported Pulmonary: Yes no symptom reported Cardiovascular: Yes no symptom reported Gastrointestional: Yes: no symptom reported Genitourinary: Yes: no symptom reported Musculoskeletal: Yes: no symptom reported Skin: Yes no symptom reported Psychiatric/Neurological: Yes: no symptom reported Endocrine: Yes: no symptom reported Physical Exam General Appearance: no apparent distress Skin: warm Respiratory: bilateral CTA Heart: S1S2 Abdomen: soft, bowel sounds present Genitourinary: bladder flat Extremities: pulses present Neurology: alert, oriented, follow commands Assessment Assessment IMP HYPERKALEMIA-RESOLVED DIANNE DUE TO INFECTIVE ENDOCARDITIS RELATED GN-IMPROVED WITH CR DOWN TO 3.3 RECENT URINARY RETENTION WITH BLANCO NEED-BLANCO OUT IV DRUG USE ENDOCARDITIS SPLENIC INFARCTS S/P RENAL BX PLAN OK TO D/C ENC MED COMPLIANCE WITH PT PT TO F/U WITH MY OFFICE IN 4 TO 5 WEEKS D/W CIARAN HORNE MD November 27, 2018 08:58
[2018-11-27] MEDS ORDERED: DAPTOMYCIN FOR PT ASSIST PROG IV SCH (09:30)
[2018-11-27] MEDS ORDERED: NORMAL SALINE IV SCH (09:30)
[2018-11-27] MEDS: LACTOBACILLUS RHAMNOSUS GG 1 CAPSULE. PO SCH (09:45)
[2018-11-27] MEDS: oxyCODONE ER 10 MG TAB.ER.12H PO SCH (09:45)
--- NOTE | 2018-11-27 10:04 | DISCH ---
DISCHARGE INSTRUCTIONS Condition on Discharge Condition on Discharge: Stable Activity After Discharge Activity Instructions for Disc: No restrictions Diet after Discharge Diet after Discharge: Low Potassium Contacting the DR. after DC Call your doctor for: If your condition worsens Follow-Up Follow up with: outpatinet clinic daily for I V Daptomycin Follow Up With: nephrology in 4 weeks Treatment/Equipment after DC Adaptive Equipment Issued: None Comment: TERRY Pruett MD November 27, 2018 10:04
[2018-11-27 11:00] VITALS: BP 140/85
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
--- NOTE | 2018-11-27 17:29 | NUR ---
Discharge Note: QUINTON VILLAGOMEZ [address] Discharge instructions and discharge home medications reviewed with Patient and a copy given. All questions have been answered and understanding verbalized. Follow up appointments reviewed with patient and family. Patient discharged with PICC line intact. Outpatient infusion therapy information given to patient. The following instructions and handouts were given: Kidney biopsy, PICC line, and Endocarditis Patient discharged to Home or Self Care with Family Member via Wheelchair
[2018-11-28] MEDS ORDERED: DAPTOMYCIN FOR PT ASSIST PROG IV SCH (09:00)
[2018-11-28] MEDS ORDERED: NORMAL SALINE IV SCH (09:00)
== END 2018-11-27 17:45 | disposition home or self-care (01) | DRG 871 ==
LOC: 1 WEST ICU 09:38 → 2 NORTH 11-16 13:30
PROVIDERS: ADMIT Internal Medicine; ATTEND Internal Medicine
PROC: B24BZZ4 Ultrasonography of Heart with Aorta, Transesophageal (ICD-10-PCS; principal; 2018-11-17 10:00)
PROC: 02HV33Z Insertion of Infusion Device into Superior Vena Cava, Percutaneous Approach (ICD-10-PCS; 2018-11-20)
PROC: 0TB13ZX Excision of Left Kidney, Percutaneous Approach, Diagnostic (ICD-10-PCS; 2018-11-24)
DX: A41.01 Sepsis due to Methicillin susceptible Staphylococcus aureus (principal); I33.0 Acute and subacute infective endocarditis; N00.9 Acute nephritic syndrome with unspecified morphologic changes; K85.90 Acute pancreatitis without necrosis or infection, unspecified; L03.114 Cellulitis of left upper limb; E87.1 Hypo-osmolality and hyponatremia; I31.3 Pericardial effusion (noninflammatory); N17.9 Acute kidney failure, unspecified; A41.89 Other specified sepsis; F32.9 Major depressive disorder, single episode, unspecified; F41.9 Anxiety disorder, unspecified; D73.5 Infarction of spleen; R33.9 Retention of urine, unspecified; B95.62 Methicillin resistant Staphylococcus aureus infection as the cause of diseases classified elsewhere; Z80.1 Family history of malignant neoplasm of trachea, bronchus and lung; Z82.5 Family history of asthma and other chronic lower respiratory diseases; Z82.49 Family history of ischemic heart disease and other diseases of the circulatory system; E87.5 Hyperkalemia; E87.6 Hypokalemia; F11.10 Opioid abuse, uncomplicated
CPT/HCPCS: 36415; 36569; 50200; 71045; 76881; 76942; 78306; 78707; 80048; 80053; 80202; 81001; 82550; 83690; 84145; 85025; 85027; 85610; 85651; 85730; 86140; 86703; 87040; 87077; 87186; 87205; 88300; 93306; 93312; 93325; 93975; 96374; 99152; A9503; A9562; J0692; J0712; J0878; J1200; J2250; J2270; J2405; J2704; J3010; J3370; J3480; J7030; J7050; J7120; J7512; 97116; 97530; 97535

== ENCOUNTER 2018-12-07 10:08 | Inpatient (IN) | payer MEDICAID, SELFPAY ==
[~2018-12-07] VITALS: Ht 172.7 cm; Wt 68.1 kg
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
--- NOTE | 2018-12-07 11:13 | RAD ---
EXAM: CHEST 1 VIEW History: Hypertension COMPARISON: 11/19/2018 TECHNIQUE: Single portable radiograph of the chest FINDINGS: Mild cardiomegaly. Right-sided PICC line tip is identified the SVC/RA junction.. Minimal prominent appearing bilateral interstitial lung markings likely congestive changes. IMPRESSION: Minimal congestive changes. Electronically signed by: Joseph Valentine MD (12/07/2018 11:10 AM) [facility]
[2018-12-07 11:19] LABS: BASO # 0.1 x10^3/uL (0.0-0.2); BASO % 1 % (0-3); EOS % 0 % (0-3); HEMOGLOBIN 9.5 g/dL (13.0-17.5); LYMPH # 2.1 x10^3/uL (1.0-4.8); LYMPH % 16 % (24-48); MEAN CORPUSCULAR HEMOGLOBIN 32 pg (25-35); MEAN CORPUSCULAR HGB CONC 34 g/dL (31-37); MEAN CORPUSCULAR VOLUME 93 fL (79-100); MONO # 1.4 x10^3/uL (0.0-1.1); MONO % 10 % (0-9); NEUT # 9.5 x10^3uL (1.8-7.7); NEUT % 73 % (31-73); PLATELET COUNT 255 x10^3/uL (140-400); RED BLOOD COUNT 3.02 x10^6/uL (4.30-5.70); RED CELL DISTRIBUTION WIDTH 13.3 % (11.5-14.5); WHITE BLOOD COUNT 13.1 x10^3/uL (4.0-11.0)
[2018-12-07 11:32] LABS: CALCIUM 8.6 mg/dL (8.5-10.1); CREATININE 1.2 mg/dL (0.7-1.3); GFR 72.1; POTASSIUM 3.5 mmol/L (3.5-5.1)
[2018-12-07 11:35] LABS: MAGNESIUM 1.5 mg/dL (1.8-2.4)
[2018-12-07 11:46] LABS: BILIRUBIN,URINE NEGATIVE (NEG); CLARITY,URINE CLEAR; COLOR,URINE YELLOW; NITRITE,URINE NEGATIVE (NEG); PROTEIN,URINE NEGATIVE (NEG-TRACE); UROBILINOGEN,URINE 0.2 mg/dL (0.2 mg/dL)
[2018-12-07 12:04] LABS: HYALINE CASTS, URINE FEW /HPF
[2018-12-07 12:05] LABS: BACTERIA,URINE 0 /HPF (0-FEW); WBC,URINE OCC /HPF (0-4)
[2018-12-07] MEDS ORDERED: HEPARIN for IV BOLUS 10,000 UNIT/10 ML VIAL. IV ONE (12:45)
[2018-12-07] MEDS ORDERED: ASPIRIN 325 MG TABLET PO ONE (12:45)
[2018-12-07] MEDS ORDERED: ACETAMINOPHEN 500 MG TABLET PO ONE (12:45)
[2018-12-07] MEDS: HEPARIN 25,000UTS/500ML PREMIX 500 ML IV PRN (12:59)
[2018-12-07] MEDS ORDERED: CONTRAST GIVEN. MC PRN (13:00)
--- NOTE | 2018-12-07 14:30 | NUR ---
PATIENT BROUGHT TO ROOM 203 PER ANUJA BY ED PERSONNEL. PATIENT STABLE WITH NO COMPLAINTS OF PAIN AT TIME OF ADMIT. PATIENT ASSESSED AT TIME OF ADMISSION. PATIENT COMPLAINING OF SOME ANXIETY AT THIS TIME. TELE MONITOR APPLIED TO PATIENT. CALL LIGHT IN REACH OF PATIENT. PATIENT ORIENTED TO ROOM AND CALL LIGHT. WILL CONTINUE TO MONITOR PATIENT
[2018-12-07] MEDS ORDERED: PRED20TA PO (14:51)
[2018-12-07 15:00] VITALS: BP 126/84
[2018-12-07] MEDS ORDERED: diphenhydrAMINE 50 MG/ML VIAL IVP PRN (15:00)
[2018-12-07 15:09] LABS: BARBITURATES NEG (NEG); BENZODIAZEPINES NEG (NEG); CANNABINOIDS NEG (NEG); COCAINE NEG (NEG); METHADONE NEG (NEG); OPIATES NEG (NEG); PHENCYCLIDINE NEG (NEG)
[2018-12-07 15:11] LABS: AMPHETAMINE/METHAMPHETAMINE NEG (NEG)
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
[2018-12-07] MEDS ORDERED: ONDANSETRON PF 4 MG/2 ML VIAL. IV PRN (15:45)
[2018-12-07] MEDS ORDERED: NITROGLYCERIN SUBLINGUAL 0.4 MG BOTTLE OF 25. SL PRN (15:45)
[2018-12-07] MEDS: diphenhydrAMINE HCL 25 MG CAPSULE PO PRN ×2 (15:55→23:44)
[2018-12-07] MEDS: predniSONE 20 MG TABLET PO SCH (15:55)
[2018-12-07] MEDS ORDERED: MAGNESIUM SULFATE 2GM 50 ML IV ONE (16:30)
[2018-12-07 19:30] VITALS: BP 141/85
[2018-12-07] MEDS: HEPARIN for IV BOLUS 10,000 UNIT/10 ML VIAL. IV PRN (20:21)
[2018-12-07 23:25] VITALS: BP 119/68
[2018-12-08 02:56] LABS: BASO % 0 % (0-3); EOS % 0 % (0-3); HEMATOCRIT 29.2 % (39.0-53.0); HEMOGLOBIN 9.9 g/dL (13.0-17.5); LYMPH % 8 % (24-48); MEAN CORPUSCULAR HEMOGLOBIN 31 pg (25-35); MEAN CORPUSCULAR HGB CONC 34 g/dL (31-37); MEAN CORPUSCULAR VOLUME 92 fL (79-100); MONO # 0.7 x10^3/uL (0.0-1.1); MONO % 6 % (0-9); NEUT # 10.1 x10^3uL (1.8-7.7); NEUT % 86 % (31-73); PLATELET COUNT 255 x10^3/uL (140-400); RED BLOOD COUNT 3.16 x10^6/uL (4.30-5.70); RED CELL DISTRIBUTION WIDTH 13.3 % (11.5-14.5); WHITE BLOOD COUNT 11.7 x10^3/uL (4.0-11.0)
[2018-12-08 03:29] VITALS: BP 135/86
[2018-12-08 03:51] LABS: ALBUMIN 3.1 g/dL (3.4-5.0); ALBUMIN/GLOBULIN RATIO 0.8 (1.0-1.7); CALCIUM 8.3 mg/dL (8.5-10.1); CREATININE 1.3 mg/dL (0.7-1.3); GFR 65.7; POTASSIUM 4.6 mmol/L (3.5-5.1); TOTAL BILIRUBIN 0.3 mg/dL (0.2-1.0); TOTAL PROTEIN 6.9 g/dL (6.4-8.2)
[2018-12-08] MEDS: HEPARIN for IV BOLUS 10,000 UNIT/10 ML VIAL. IV PRN (03:59)
--- NOTE | 2018-12-08 07:02 | EKG ---
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
[2018-12-08 07:27] VITALS: BP 146/93
[2018-12-08 09:18] LABS: % LYMPHS 4 % (24-48); % MONOS 7 % (0-10); % SEGS 89 % (35-66)
[2018-12-08 09:19] LABS: PLT ESTIMATE ADEQUATE (ADEQUATE)
[2018-12-08] MEDS ORDERED: NORMAL SALINE IV SCH ×2 (10:00)
[2018-12-08] MEDS ORDERED: DAPTOMYCIN IV SCH (10:00)
[2018-12-08] MEDS ORDERED: DAPTOMYCIN FOR PT ASSIST PROG IV SCH (10:00)
[2018-12-08] MEDS ORDERED: MAGNESIUM SULFATE 2GM 50 ML IV ONE (10:00)
--- NOTE | 2018-12-08 10:05 | PDOC2 ---
AMANDARYNE BILL 12/08/18 1005: CARDIAC CONSULT DATE OF CONSULT Date of Consult DATE: 12/08/18 TIME: 09:35 REASON FOR CONSULT Reason for Consult: Chest pain REFERRING PHYSICIAN Referring Physician: Kayla Louis APRN SOURCE Source: Chart review, Patient HISTORY OF PRESENT ILLNESS HISTORY OF PRESENT ILLNESS This is a 28 yo male, with a recent history of infective endocarditis and sepsis with GPC bacteremia secondary to IV heroin use, who presented secondary to chest pain and elevated blood pressure. SAVANAH 3 weeks ago notable for a 1cm vegetation on the posterior leaflet of the mitral valve. In addition there appeared to be a ruptured chord with systolic anterior motion but only mild MR. LV function was normal. Patient has been receiving daily outpatient antibiotic therapy. For the last couple of days, blood pressure has been elevated. Continue to be elevated yesterday and patient reported experiencing stabbing pain in his left chest so he was recommended to go to the ED for further evaluation and treatment. Pain lasts about 2-3 seconds and resolves without intervention. Reports experiencing some shortness of breath upon exertion for the last week or so. No dizziness, diaphoresis, palpitations, dizziness, or nausea/vomiting. Has been clean for 3 weeks. PAST MEDICAL HISTORY Cardiovascular: Other PAST SURGICAL HISTORY Past Surgical History: No pertinent history FAMILY HISTORY Family History: Cancer SOCIAL HISTORY Smoke: No ALCOHOL: none Drugs: Heroin (quit 3 weeks ago) Lives: with Family CURRENT MEDICATIONS CURRENT MEDICATIONS Current Medications Medications (Trade) Dose Ordered Sig/Diana Route PRN Reason Start Time Stop Time Status Last Admin Dose Admin Aspirin (Neva Aspirin) 325 mg 1X ONCE PO 12/07/18 12:45 12/07/18 12:46 DC 12/07/18 12:41 Acetaminophen (Tylenol) 500 mg 1X ONCE PO 12/07/18 12:45 12/07/18 12:46 DC 12/07/18 12:41 Heparin Sodium (Porcine) (Heparin Sodium) 4,000 unit 1X ONCE IV 12/07/18 12:45 12/07/18 12:47 DC 12/07/18 13:00 Heparin Sodium/ Dextrose 500 ml @ 0 mls/hr CONT PRN IV SEE I/O RECORD 12/07/18 12:45 12/07/18 12:59 Heparin Sodium (Porcine) (Heparin Sodium) 1,800 unit PRN Q6HRS PRN IV FOR UFH LEVEL LESS THAN 0.2 5/19/19 12:45 12/08/18 03:59 Prednisone (Prednisone) 40 mg DAILY PO 12/07/18 15:30 12/07/18 15:55 Diphenhydramine HCl (Benadryl) 25 mg PRN Q6HRS PRN PO ITCHING 12/07/18 15:45 12/07/18 23:44 Magnesium Sulfate 50 ml @ 25 mls/hr 1X ONCE IV 12/07/18 16:30 12/07/18 18:29 DC 12/07/18 17:25 ALLERGIES ALLERGIES: Coded Allergies: No Known Drug Allergies (Unverified , 12/06/18) ROS Review of System 14 point ROS conducted with pertinent positives noted above in HPI. PHYSICAL EXAM General: Alert, Oriented X3, Cooperative, No acute distress HEENT: Atraumatic, Mucous membr. moist/pink Lungs: Normal air movement, Other (fine bibasilar crackles) Heart: Regular rate, Normal S1, Normal S2, No murmurs, Other (2/6 systolic murmur ) Abdomen: Soft, No tenderness Extremities: No edema, Normal pulses Skin: No significant lesion Neuro: Normal speech, Sensation intact Psych/Mental Status: Mental status NL, Mood NL VITALS VITALS Vital Signs Date Time Temp Pulse Resp B/P (MAP) Pulse Ox O2 Delivery O2 Flow Rate FiO2 12/08/18 08:00 Room Air 12/08/18 07:27 98.3 73 15 146/93 (110) 97 98.3 LABS Lab: Laboratory Tests Test 12/07/18 11:00 12/07/18 11:05 12/07/18 11:32 12/07/18 15:25 White Blood Count 13.1 x10^3/uL (4.0-11.0) Red Blood Count 3.02 x10^6/uL (4.30-5.70) Hemoglobin 9.5 g/dL (13.0-17.5) Hematocrit 28.0 % (39.0-53.0) Mean Corpuscular Volume 93 fL (79-100) Mean Corpuscular Hemoglobin 32 pg (25-35) Mean Corpuscular Hemoglobin Concent 34 g/dL (31-37) Red Cell Distribution Width 13.3 % (11.5-14.5) Platelet Count 255 x10^3/uL (140-400) Neutrophils (%) (Auto) 73 % (31-73) Lymphocytes (%) (Auto) 16 % (24-48) Monocytes (%) (Auto) 10 % (0-9) Eosinophils (%) (Auto) 0 % (0-3) Basophils (%) (Auto) 1 % (0-3) Neutrophils # (Auto) 9.5 x10^3uL (1.8-7.7) Lymphocytes # (Auto) 2.1 x10^3/uL (1.0-4.8) Monocytes # (Auto) 1.4 x10^3/uL (0.0-1.1) Eosinophils # (Auto) 0.0 x10^3/uL (0.0-0.7) Basophils # (Auto) 0.1 x10^3/uL (0.0-0.2) Sodium Level 141 mmol/L (136-145) Potassium Level 3.5 mmol/L (3.5-5.1) Chloride Level 103 mmol/L (98-107) Carbon Dioxide Level 26 mmol/L (21-32) Anion Gap 12 (6-14) Blood Urea Nitrogen 25 mg/dL (8-26) Creatinine 1.2 mg/dL (0.7-1.3) Estimated GFR (Cockcroft-Gault) 72.1 Glucose Level 100 mg/dL (70-99) Calcium Level 8.6 mg/dL (8.5-10.1) Magnesium Level 1.5 mg/dL (1.8-2.4) Troponin I Quantitative 1.309 ng/mL (0.000-0.055) 0.838 ng/mL (0.000-0.055) JU-Dzr-[id number]-Type Natriuretic Peptide 1292 pg/mL (0-124) Thyroid Stimulating Hormone (TSH) 2.376 uIU/mL (0.358-3.74) Urine Collection Type Unknown Urine Color Yellow Urine Clarity Clear Urine pH 7.0 Urine Specific [place] 1.015 Urine Protein Negative mg/dL (NEG-TRACE) Urine Glucose (UA) Negative mg/dL (NEG) Urine Ketones (Stick) Negative mg/dL (NEG) Urine Blood Large (NEG) Urine Nitrite Negative (NEG) Urine Bilirubin Negative (NEG) Urine Urobilinogen Dipstick 0.2 mg/dL (0.2 mg/dL) Urine Leukocyte Esterase Negative (NEG) Urine RBC 11-20 /HPF (0-2) Urine WBC Occ /HPF (0-4) Urine Bacteria 0 /HPF (0-FEW) Urine Hyaline Casts Few /HPF Urine Mucus Mod /LPF Urine Opiates Screen Neg (NEG) Urine Methadone Screen Neg (NEG) Urine Barbiturates Neg (NEG) Urine Phencyclidine Screen Neg (NEG) Urine Amphetamine/Methamphetamine Neg (NEG) Urine Benzodiazepines Screen Neg (NEG) Urine Cocaine Screen Neg (NEG) Urine Cannabinoids Screen Neg (NEG) Urine Ethyl Alcohol Neg (NEG) Test 12/07/18 18:35 12/08/18 02:45 Heparin Anti-Xa Act, Unfractionated < 0.10 IU/mL (0.30-0.70) < 0.10 IU/mL (0.30-0.70) Troponin I Quantitative 0.544 ng/mL (0.000-0.055) White Blood Count 11.7 x10^3/uL (4.0-11.0) Red Blood Count 3.16 x10^6/uL (4.30-5.70) Hemoglobin 9.9 g/dL (13.0-17.5) Hematocrit 29.2 % (39.0-53.0) Mean Corpuscular Volume 92 fL (79-100) Mean Corpuscular Hemoglobin 31 pg (25-35) Mean Corpuscular Hemoglobin Concent 34 g/dL (31-37) Red Cell Distribution Width 13.3 % (11.5-14.5) Platelet Count 255 x10^3/uL (140-400) Neutrophils (%) (Auto) 86 % (31-73) Lymphocytes (%) (Auto) 8 % (24-48) Monocytes (%) (Auto) 6 % (0-9) Eosinophils (%) (Auto) 0 % (0-3) Basophils (%) (Auto) 0 % (0-3) Neutrophils # (Auto) 10.1 x10^3uL (1.8-7.7) Lymphocytes # (Auto) 1.0 x10^3/uL (1.0-4.8) Monocytes # (Auto) 0.7 x10^3/uL (0.0-1.1) Eosinophils # (Auto) 0.0 x10^3/uL (0.0-0.7) Basophils # (Auto) 0.0 x10^3/uL (0.0-0.2) Segmented Neutrophils % 89 % (35-66) Lymphocytes % 4 % (24-48) Monocytes % 7 % (0-10) Platelet Estimate Adequate (ADEQUATE) Sodium Level 140 mmol/L (136-145) Potassium Level 4.6 mmol/L (3.5-5.1) Chloride Level 103 mmol/L (98-107) Carbon Dioxide Level 27 mmol/L (21-32) Anion Gap 10 (6-14) Blood Urea Nitrogen 27 mg/dL (8-26) Creatinine 1.3 mg/dL (0.7-1.3) Estimated GFR (Cockcroft-Gault) 65.7 BUN/Creatinine Ratio 21 (6-20) Glucose Level 129 mg/dL (70-99) Calcium Level 8.3 mg/dL (8.5-10.1) Total Bilirubin 0.3 mg/dL (0.2-1.0) Aspartate Amino Transf (AST/SGOT) 12 U/L (15-37) Alanine Aminotransferase (ALT/SGPT) 19 U/L (16-63) Alkaline Phosphatase 57 U/L (46-116) Creatine Kinase 17 U/L (39-308) Total Protein 6.9 g/dL (6.4-8.2) Albumin 3.1 g/dL (3.4-5.0) Albumin/Globulin Ratio 0.8 (1.0-1.7) ECHOCARDIOGRAM ECHOCARDIOGRAM <Conclusion> The left ventricular systolic function is normal. The Ejection Fraction is 60%. There is normal LV segmental wall motion. Echogenic mass noted on posterior mitral valve leaflet measuring 1.10cm x 0.81cm consistent with endocarditis. Possible ruptured mitral valve chordae seen extending into left ventricular outflow tract in systole. Mild eccentric mitral regurgitation. Trace tricuspid regurgitation. There is small pericardial effusion. DATE: 11/17/18 1430 ASSESSMENT/PLAN ASSESSMENT/PLAN 1. Chest pain, mixed features 2. NSTEMI; trop peak 1.3. Multifactorial, but cannot rule out embolization given below. 3. Infective endocarditis with 1 cm vegetation to posterior MV leaflet 4. Mild acute diastolic HF; NT Pro BNP elevated and CXR with mild congestive ch anges 5. Hypertension; now controlled 6. Recent sepsis with GPC bacteremia. Outpatient antibiotic therapy noted with . ID following 7. MR; with possible rupture chordae tendinae 8. IVDU; clean for 3 weeks. UDS negative this admission 9. Hypomagnesemia; replaced. Recommendations Continue heparin gtt. Add ASA Lasix x1 Continue antibiotic therapy as per ID. NPO p MN Given risk for embolization in the setting of NSTEMI, will plan for cardiac catheterization in am. Supportive care TOPHER WALTON MD 12/08/18 1718: CARDIAC CONSULT ASSESSMENT/PLAN ASSESSMENT/PLAN Patient seen and examined. Agree with MENTAL HEALTH COORDINATOR's assessment and plan. Chest pain with mixed features Troponin level elevated consistent with non-STEMI Possible etiologies include demand ischemia versus embolic Plan for cardiac catheterization for definitive evaluation tomorrow Risks and benefits were explained and he is agreeable Continue diuresis for mild acute on chronic diastolic heart failure Continue antibiotics per ID team Thank you for your consultation RYNE PATEL APRN December 08, 2018 10:05 TOPHER WALTON MD December 08, 2018 17:18
[2018-12-08] MEDS: predniSONE 20 MG TABLET PO SCH (10:19)
[2018-12-08] MEDS: HEPARIN 25,000UTS/500ML PREMIX 500 ML IV PRN (10:36)
[2018-12-08 10:39] VITALS: BP 135/91
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
--- NOTE | 2018-12-08 10:45 | HP ---
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 Apparently, his blood pressure was up to 180 systolic over 106 by the time he arrived here. He has had lab work done at that time, showed he has mild leukocytosis and his troponin was high at 1.309 and therefore, he was admitted for further evaluation and treatment. PAST MEDICAL HISTORY: Significant for history of hepatitis C that was treated, IV drug abuse for the last 5 years using IV heroin. He was admitted on 11/15/2018 and was diagnosed with methicillin-resistant Staphylococcus aureus endocarditis. 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 PAST SURGICAL HISTORY: Unremarkable. He did have a PICC line placed on his last admission. ALLERGIES: He has no known drug allergies. FAMILY HISTORY: His father of lung cancer. His mother is still alive and has severe COPD. He has 3 older sisters and they are seemingly healthy. SOCIAL HISTORY: He is single, never , has no children. Does not smoke or drink alcohol, but has been using IV heroin for the last 5 years. 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 REVIEW OF SYSTEMS: As per history of present illness. PHYSICAL EXAMINATION: GENERAL: On arrival to the Emergency Room yesterday, he looked somewhat pale, but was in no apparent respiratory distress. VITAL SIGNS: His heart rate on arrival was 68, blood pressure was 176/106, temperature was 98.3, respiratory rate was 14 and oxygen saturation was 99%. HEAD, EYES, EARS, NOSE, AND THROAT: Showed he is normocephalic, atraumatic. NECK: Supple. HEART: Showed normal first and second heart sounds. No gallop, rub or murmur. CHEST: Clear to auscultation. No crepitation or rhonchi. ABDOMEN: Slightly distended, soft, nontender. NEUROLOGIC: He is awake, alert, responding appropriately. All cranial nerves intact. EXTREMITIES: He moves extremities without difficulty, ambulates without assistance or assistive devices. LABORATORY DATA AND DIAGNOSTIC STUDIES: His lab work showed a white cell count of 13,100, hemoglobin 9.5, hematocrit 28, MCV 93, and platelet count 255,000 with normal manual differential. His chemistry showed a serum sodium 141, potassium 3.5, chloride 103, bicarbonate 26, anion gap of 12, BUN 25, creatinine 1.2, estimated GFR was 72 mL per minute, his glucose was 100, calcium was 8.56, magnesium was 1.5. His beta-natriuretic peptide was 1292. His troponin was 1.309. His TSH was 2.376. His prothrombin time ____. His urinalysis showed the urine was yellow, clear with a pH of 7, specific gravity 1.015. The urine was negative for protein, glucose, ketones; there was large amount of blood, negative for nitrite and bilirubin as well as leukocyte esterase; 11-20 rbc's; no wbc's and no bacteria. His toxic screen was negative. He has had a chest x-ray, which showed that he has mild cardiomegaly, right-sided PICC line with tip identified at the superior vena cava, right atrium junction, minimal prominent appearing bilateral interstitial lung markings, likely congestive changes. His EKG showed that he was in sinus rhythm with a heart rate was [address] segment elevation myocardial infarction. ASSESSMENT AND PLAN: The patient was admitted with a diagnosis of non-ST segment elevation myocardial infarction, was started on heparin drip. I did continue his daptomycin as well as his oral steroids. He is supposed to be on 40 mg of prednisone daily. I did consult the Cardiology, Infectious Disease specialist as well as Service Unit Operator [employer] and we will do 2 more sets of cardiac enzymes and decide on further management accordingly. TERRY GAITAN MD DR: ANTONINO/gudelia JOB#: [id number] / [id number]
--- NOTE | 2018-12-08 11:11 | PDOC2 ---
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 PMHx significant for hepatitis C that was treated, IV drug abuse for the last 5 years using IV heroin. He was admitted on 11/15/2018 and was diagnosed with methicillin-resistant Staphylococcus aureus endocarditis. 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 Currently states he has been having some N/V every morning for past few days . No F/C. Reports compliance with Prednisone , has fu OP appt with Dr. Marie on 12/11 Denies any urinary complaints, good UOp. Past Medical History Cardiovascular: Other Hepatobiliary: Hep A/B/C Psych: Anxiety, Depression Past Surgical History Past Surgical History: No pertinent history Family History Family History: Hypertension Social History Drugs: Heroin Current Medications Current Medications Current Medications Aspirin (Neva Aspirin) 325 mg 1X ONCE PO Last administered on 12/07/18at 12:41; Start 12/07/18 at 12:45; Stop 12/07/18 at 12:46; Status DC Acetaminophen (Tylenol) 500 mg 1X ONCE PO Last administered on 12/07/18at 12:41; Start 12/07/18 at 12:45; Stop 12/07/18 at 12:46; Status DC Heparin Sodium (Porcine) (Heparin Sodium) 4,000 unit 1X ONCE IV Last administered on 12/07/18at 13:00; Start 12/07/18 at 12:45; Stop 12/07/18 at 12:47; Status DC Heparin Sodium/ Dextrose 500 ml @ 0 mls/hr CONT PRN IV SEE I/O RECORD Last administered on 12/08/18at 10:36; Start 12/07/18 at 12:45 Heparin Sodium (Porcine) (Heparin Sodium) 1,800 unit PRN Q6HRS PRN IV FOR UFH LEVEL LESS THAN 0.2 Last administered on 12/08/18at 03:59; Start 12/07/18 at 12:45 Info (CONTRAST GIVEN -- Rx MONITORING) 1 each PRN DAILY PRN MC SEE COMMENTS; Start 12/07/18 at 13:00; Stop 12/09/18 at 12:59 Acetaminophen (Tylenol) 650 mg PRN Q4HRS PRN PO MILD PAIN / TEMP; Start 12/07/18 at 15:00 Diphenhydramine HCl (Benadryl) 25 mg PRN Q6HRS PRN IVP ITCHING; Start 12/07/18 at 15:00; Status Cancel Prednisone (Prednisone) 40 mg DAILY PO Last administered on 12/08/18at 10:19; Start 12/07/18 at 15:30 Daptomycin 432 mg/ Sodium Chloride 50 ml @ 100 mls/hr Q24H IV ; Start 12/08/18 at 10:00; Status Cancel Info (Anti-Coagulation Monitoring By Pharmacy) 1 each PRN DAILY PRN MC SEE COMMENTS; Start 12/07/18 at 15:15 Diphenhydramine HCl (Benadryl) 25 mg PRN Q6HRS PRN PO ITCHING Last administered on 12/07/18at 23:44; Start 12/07/18 at 15:45 Ondansetron HCl (Zofran) 4 mg PRN Q8HRS PRN IV NAUSEA/VOMITING; Start 12/07/18 at 15:45; Stop 12/08/18 at 15:44 Nitroglycerin (Nitrostat) 0.4 mg PRN Q5MIN PRN SL CHEST PAIN; Start 12/07/18 at 15:45; Stop 12/08/18 at 15:44 Magnesium Sulfate 50 ml @ 25 mls/hr 1X ONCE IV Last administered on 12/07/18at 17:25; Start 12/07/18 at 16:30; Stop 12/07/18 at 18:29; Status DC Daptomycin 432 mg/ Sodium Chloride 50 ml @ 100 mls/hr Q24H IV Last administered on 12/08/18at 10:19; Start 12/08/18 at 10:00 Magnesium Sulfate 50 ml @ 25 mls/hr 1X ONCE IV ; Start 12/08/18 at 10:00; Stop 12/08/18 at 11:59 Active Scripts Active Reported Prednisone 20 Mg Tablet 40 Mg PO DAILY Allergies Allergies: Coded Allergies: No Known Drug Allergies (Unverified , 12/06/18) ROS Review of System As per HPI Physical Exam Physical Exam GENERAL:NAD HENT: OM moist NECK: Supple LUNGS: Clear anteriorly, nonlabored CV: S1 and S2, + murmur ABD: Mildly distended, soft, tender, BS present EXT: No edema, no cyanosis SKIN: Multiple tattoos. No generalized rash. + track casas, TICKET CLERK: Alert and oriented x 3. No David, No CV A or SP tenderness Vital Signs Vital Signs Date Time Temp Pulse Resp B/P (MAP) Pulse Ox O2 Delivery O2 Flow Rate FiO2 12/08/18 10:39 98.0 88 15 135/91 (106) 97 Room Air 98.0 Assessment & Plan CKD stage 2 - stable Recent DIANNE with Cr 4.3 Non oliguric - resolved S/P Renal Bx -Endocarditis related GN On prednisone 40 mg PO QD Has OP appt with Dr. Marie on Sepsis with GPC bacteremia 11/14 Recent discharge On IV Daptomycin per ID Endocarditis (posterior mitral valve leaflet measuring 1.10cm x 0.81cm) on SAVANAH HTN- Stable now Splenic infarcts Cellulitis and track casas upper extremities bilaterally, improved Hx of Urinary retention IV Drug use- Heroin Labs Labs Laboratory Tests Test 12/07/18 11:00 12/07/18 11:05 12/07/18 11:32 12/07/18 15:25 White Blood Count 13.1 x10^3/uL (4.0-11.0) Red Blood Count 3.02 x10^6/uL (4.30-5.70) Hemoglobin 9.5 g/dL (13.0-17.5) Hematocrit 28.0 % (39.0-53.0) Mean Corpuscular Volume 93 fL (79-100) Mean Corpuscular Hemoglobin 32 pg (25-35) Mean Corpuscular Hemoglobin Concent 34 g/dL (31-37) Red Cell Distribution Width 13.3 % (11.5-14.5) Platelet Count 255 x10^3/uL (140-400) Neutrophils (%) (Auto) 73 % (31-73) Lymphocytes (%) (Auto) 16 % (24-48) Monocytes (%) (Auto) 10 % (0-9) Eosinophils (%) (Auto) 0 % (0-3) Basophils (%) (Auto) 1 % (0-3) Neutrophils # (Auto) 9.5 x10^3uL (1.8-7.7) Lymphocytes # (Auto) 2.1 x10^3/uL (1.0-4.8) Monocytes # (Auto) 1.4 x10^3/uL (0.0-1.1) Eosinophils # (Auto) 0.0 x10^3/uL (0.0-0.7) Basophils # (Auto) 0.1 x10^3/uL (0.0-0.2) Sodium Level 141 mmol/L (136-145) Potassium Level 3.5 mmol/L (3.5-5.1) Chloride Level 103 mmol/L (98-107) Carbon Dioxide Level 26 mmol/L (21-32) Anion Gap 12 (6-14) Blood Urea Nitrogen 25 mg/dL (8-26) Creatinine 1.2 mg/dL (0.7-1.3) Estimated GFR (Cockcroft-Gault) 72.1 Glucose Level 100 mg/dL (70-99) Calcium Level 8.6 mg/dL (8.5-10.1) Magnesium Level 1.5 mg/dL (1.8-2.4) Troponin I Quantitative 1.309 ng/mL (0.000-0.055) 0.838 ng/mL (0.000-0.055) TD-Pan-N-Type Natriuretic Peptide 1292 pg/mL (0-124) Thyroid Stimulating Hormone (TSH) 2.376 uIU/mL (0.358-3.74) Urine Collection Type Unknown Urine Color Yellow Urine Clarity Clear Urine pH 7.0 Urine Specific [place] 1.015 Urine Protein Negative mg/dL (NEG-TRACE) Urine Glucose (UA) Negative mg/dL (NEG) Urine Ketones (Stick) Negative mg/dL (NEG) Urine Blood Large (NEG) Urine Nitrite Negative (NEG) Urine Bilirubin Negative (NEG) Urine Urobilinogen Dipstick 0.2 mg/dL (0.2 mg/dL) Urine Leukocyte Esterase Negative (NEG) Urine RBC 11-20 /HPF (0-2) Urine WBC Occ /HPF (0-4) Urine Bacteria 0 /HPF (0-FEW) Urine Hyaline Casts Few /HPF Urine Mucus Mod /LPF Urine Opiates Screen Neg (NEG) Urine Methadone Screen Neg (NEG) Urine Barbiturates Neg (NEG) Urine Phencyclidine Screen Neg (NEG) Urine Amphetamine/Methamphetamine Neg (NEG) Urine Benzodiazepines Screen Neg (NEG) Urine Cocaine Screen Neg (NEG) Urine Cannabinoids Screen Neg (NEG) Urine Ethyl Alcohol Neg (NEG) Test 12/07/18 18:35 12/08/18 02:45 Heparin Anti-Xa Act, Unfractionated < 0.10 IU/mL (0.30-0.70) < 0.10 IU/mL (0.30-0.70) Troponin I Quantitative 0.544 ng/mL (0.000-0.055) White Blood Count 11.7 x10^3/uL (4.0-11.0) Red Blood Count 3.16 x10^6/uL (4.30-5.70) Hemoglobin 9.9 g/dL (13.0-17.5) Hematocrit 29.2 % (39.0-53.0) Mean Corpuscular Volume 92 fL (79-100) Mean Corpuscular Hemoglobin 31 pg (25-35) Mean Corpuscular Hemoglobin Concent 34 g/dL (31-37) Red Cell Distribution Width 13.3 % (11.5-14.5) Platelet Count 255 x10^3/uL (140-400) Neutrophils (%) (Auto) 86 % (31-73) Lymphocytes (%) (Auto) 8 % (24-48) Monocytes (%) (Auto) 6 % (0-9) Eosinophils (%) (Auto) 0 % (0-3) Basophils (%) (Auto) 0 % (0-3) Neutrophils # (Auto) 10.1 x10^3uL (1.8-7.7) Lymphocytes # (Auto) 1.0 x10^3/uL (1.0-4.8) Monocytes # (Auto) 0.7 x10^3/uL (0.0-1.1) Eosinophils # (Auto) 0.0 x10^3/uL (0.0-0.7) Basophils # (Auto) 0.0 x10^3/uL (0.0-0.2) Segmented Neutrophils % 89 % (35-66) Lymphocytes % 4 % (24-48) Monocytes % 7 % (0-10) Platelet Estimate Adequate (ADEQUATE) Sodium Level 140 mmol/L (136-145) Potassium Level 4.6 mmol/L (3.5-5.1) Chloride Level 103 mmol/L (98-107) Carbon Dioxide Level 27 mmol/L (21-32) Anion Gap 10 (6-14) Blood Urea Nitrogen 27 mg/dL (8-26) Creatinine 1.3 mg/dL (0.7-1.3) Estimated GFR (Cockcroft-Gault) 65.7 BUN/Creatinine Ratio 21 (6-20) Glucose Level 129 mg/dL (70-99) Calcium Level 8.3 mg/dL (8.5-10.1) Total Bilirubin 0.3 mg/dL (0.2-1.0) Aspartate Amino Transf (AST/SGOT) 12 U/L (15-37) Alanine Aminotransferase (ALT/SGPT) 19 U/L (16-63) Alkaline Phosphatase 57 U/L (46-116) Creatine Kinase 17 U/L (39-308) Total Protein 6.9 g/dL (6.4-8.2) Albumin 3.1 g/dL (3.4-5.0) Albumin/Globulin Ratio 0.8 (1.0-1.7) Laboratory Tests Test 12/07/18 11:32 12/07/18 15:25 12/07/18 18:35 12/08/18 02:45 Urine Collection Type Unknown Urine Color Yellow Urine Clarity Clear Urine pH 7.0 Urine Specific [place] 1.015 Urine Protein Negative mg/dL (NEG-TRACE) Urine Glucose (UA) Negative mg/dL (NEG) Urine Ketones (Stick) Negative mg/dL (NEG) Urine Blood Large (NEG) Urine Nitrite Negative (NEG) Urine Bilirubin Negative (NEG) Urine Urobilinogen Dipstick 0.2 mg/dL (0.2 mg/dL) Urine Leukocyte Esterase Negative (NEG) Urine RBC 11-20 /HPF (0-2) Urine WBC Occ /HPF (0-4) Urine Bacteria 0 /HPF (0-FEW) Urine Hyaline Casts Few /HPF Urine Mucus Mod /LPF Urine Opiates Screen Neg (NEG) Urine Methadone Screen Neg (NEG) Urine Barbiturates Neg (NEG) Urine Phencyclidine Screen Neg (NEG) Urine Amphetamine/Methamphetamine Neg (NEG) Urine Benzodiazepines Screen Neg (NEG) Urine Cocaine Screen Neg (NEG) Urine Cannabinoids Screen Neg (NEG) Urine Ethyl Alcohol Neg (NEG) Troponin I Quantitative 0.838 ng/mL (0.000-0.055) 0.544 ng/mL (0.000-0.055) Heparin Anti-Xa Act, Unfractionated < 0.10 IU/mL (0.30-0.70) < 0.10 IU/mL (0.30-0.70) White Blood Count 11.7 x10^3/uL (4.0-11.0) Red Blood Count 3.16 x10^6/uL (4.30-5.70) Hemoglobin 9.9 g/dL (13.0-17.5) Hematocrit 29.2 % (39.0-53.0) Mean Corpuscular Volume 92 fL (79-100) Mean Corpuscular Hemoglobin 31 pg (25-35) Mean Corpuscular Hemoglobin Concent 34 g/dL (31-37) Red Cell Distribution Width 13.3 % (11.5-14.5) Platelet Count 255 x10^3/uL (140-400) Neutrophils (%) (Auto) 86 % (31-73) Lymphocytes (%) (Auto) 8 % (24-48) Monocytes (%) (Auto) 6 % (0-9) Eosinophils (%) (Auto) 0 % (0-3) Basophils (%) (Auto) 0 % (0-3) Neutrophils # (Auto) 10.1 x10^3uL (1.8-7.7) Lymphocytes # (Auto) 1.0 x10^3/uL (1.0-4.8) Monocytes # (Auto) 0.7 x10^3/uL (0.0-1.1) Eosinophils # (Auto) 0.0 x10^3/uL (0.0-0.7) Basophils # (Auto) 0.0 x10^3/uL (0.0-0.2) Segmented Neutrophils % 89 % (35-66) Lymphocytes % 4 % (24-48) Monocytes % 7 % (0-10) Platelet Estimate Adequate (ADEQUATE) Sodium Level 140 mmol/L (136-145) Potassium Level 4.6 mmol/L (3.5-5.1) Chloride Level 103 mmol/L (98-107) Carbon Dioxide Level 27 mmol/L (21-32) Anion Gap 10 (6-14) Blood Urea Nitrogen 27 mg/dL (8-26) Creatinine 1.3 mg/dL (0.7-1.3) Estimated GFR (Cockcroft-Gault) 65.7 BUN/Creatinine Ratio 21 (6-20) Glucose Level 129 mg/dL (70-99) Calcium Level 8.3 mg/dL (8.5-10.1) Total Bilirubin 0.3 mg/dL (0.2-1.0) Aspartate Amino Transf (AST/SGOT) 12 U/L (15-37) Alanine Aminotransferase (ALT/SGPT) 19 U/L (16-63) Alkaline Phosphatase 57 U/L (46-116) Creatine Kinase 17 U/L (39-308) Total Protein 6.9 g/dL (6.4-8.2) Albumin 3.1 g/dL (3.4-5.0) Albumin/Globulin Ratio 0.8 (1.0-1.7) Review All relevant outside records, renal labs, imaging studies, telemetry/EKG's were reviewed. HANNAH LOPEZ MD December 08, 2018 11:11
--- NOTE | 2018-12-08 12:16 | NUR ---
SS following for discharge planning. SS reviewed pt chart. Pt is from home and recently discharged with outpatient IV antibiotics daily through [facility]. No discharge needs at this time. Pt will continue outpatient IV antibiotics at discharge.
--- NOTE | 2018-12-08 12:43 | PN ---
DATE: 12/08/2018 SUBJECTIVE: The patient is a 28-year-old male patient who was admitted yesterday with accelerated hypertension. He also complained of shortness of breath and chest pain and was evaluated in the Emergency Room, and his troponin was elevated and was admitted with non-ST segment elevation myocardial infarction. We did 2 more sets of cardiac enzymes, showed troponin elevated, although trending down at 0.838 and 0.544. We continued the heparin drip. We did start him also on Tylenol and by the time I saw him this morning, he looked well and was clearly in no apparent respiratory distress. He denied any chest pain or shortness of breath. OBJECTIVE: GENERAL: On examining him, he looked somewhat pale, but no jaundice, cyanosis or thyromegaly. No jugular venous distension. No lower limb edema. VITAL SIGNS: His heart rate was 73, blood pressure was 146/93, temperature was 98.3, respiratory rate was 15 and oxygen saturation was 97%. HEAD, EYES, EARS, NOSE AND THROAT: Showed normocephalic, atraumatic. NECK: Supple. HEART: Showed normal first and second heart sounds. No gallop, rub or murmur. CHEST: Shows central trachea, equal bilateral chest expansion, air entry, vesicular sounds. No crepitation or rhonchi. ABDOMEN: Distended, soft, nontender. No guarding or rigidity. No organomegaly. All hernial orifice intact. Bowel sounds normal. NEUROLOGIC: He was awake, alert, responding appropriately. All cranial nerves intact. He moves extremities without difficulty, ambulates without assistance or assistive devices. His intake and output are incompletely recorded. LABORATORY DATA: Showed a serum sodium 140, potassium 4.6, chloride 103, bicarbonate 27, anion gap of 10, BUN 27, creatinine 1.3, estimated GFR was 65 mL per minute. His glucose was 129, calcium was 8.3. Total bilirubin, AST, ALT, alkaline phosphatase were normal. His CK was only 17, total protein was 6.9, albumin was 3.2. He has 2 more sets of cardiac enzymes that showed that the troponin is elevated, although trending down. ASSESSMENT AND PLAN: He was seen in consultation by the Infectious Disease, and he was continued on his daptomycin. We did consult the telecommunications line mechanic as well as the manager of sustainability, as last admission, he developed endocarditis related glomerulonephritis and was treated with high dose steroids. We will continue with that today. We will decide overseeing further management according to the recommendation. TERRY GAITAN MD DR: ANTONINO/gudelia JOB#: [id number] / [id number]
[2018-12-08] MEDS: ANTI-COAG MONITOR BY PHARMACY. MC PRN (12:52)
[2018-12-08 15:04] VITALS: BP 136/75
[2018-12-08] MEDS ORDERED: FUROSEMIDE 20 MG/2 ML VIAL. IVP ONE (15:30)
[2018-12-08] MEDS: ASPIRIN ENTERIC COATED 81 MG TABLET.DR. PO SCH (15:51)
[2018-12-08] MEDS: diphenhydrAMINE HCL 25 MG CAPSULE PO PRN (17:59)
[2018-12-08 19:29] VITALS: BP 130/78
[2018-12-08 22:43] VITALS: BP 130/75
[2018-12-09] VITALS (15 sets, daily range): BP systolic 103–145; BP diastolic 63–93
[2018-12-09] MEDS: traZODone 50 MG TABLET. PO PRN ×2 (00:26→23:38)
[2018-12-09 06:34] LABS: CALCIUM 8.5 mg/dL (8.5-10.1); CREATININE 1.3 mg/dL (0.7-1.3); GFR 65.7; MAGNESIUM 1.7 mg/dL (1.8-2.4); POTASSIUM 4.3 mmol/L (3.5-5.1)
[2018-12-09 06:35] LABS: CHOLESTEROL/HDL RATIO 3.4
[2018-12-09] MEDS: HEPARIN for IV BOLUS 10,000 UNIT/10 ML VIAL. IV PRN (07:36)
[2018-12-09] MEDS: ANTI-COAG MONITOR BY PHARMACY. MC PRN (08:46)
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
[2018-12-09] MEDS ORDERED: LIDOCAINE 1% PF 2 ML VIAL. ONE (10:30)
[2018-12-09] MEDS ORDERED: IOHEXOL 300 MG/ML 100ML VIAL. ONE (10:30)
--- NOTE | 2018-12-09 11:32 | PDOC ---
SUBJECTIVE ROS s/p cardiac cath this am OBJECTIVE Vital Signs Vital Signs Date Time Temp Pulse Resp B/P (MAP) Pulse Ox O2 Delivery O2 Flow Rate FiO2 12/09/18 10:46 98.8 72 16 145/85 (105) 98 Room Air 98.8 I & 0 Intake and Output 12/09/18 07:00 Intake Total 1150 ml Output Total 2100 ml Balance -950 ml Intake Oral 1100 ml IV Total 50 ml Output Urine Total 2100 ml PHYSICAL EXAM Physical Exam GENERAL:NAD HENT: OM moist NECK: Supple LUNGS: Clear anteriorly, nonlabored CV: S1 and S2, + murmur ABD: Mildly distended, soft, tender, BS present EXT: No edema, no cyanosis SKIN: Multiple tattoos. No generalized rash. + track casas, FIRE SAFETY DIRECTOR: Alert and oriented x 3. No David, No CV A or SP tenderness DIAGNOSIS/ASSESSMENT Assessment & Plan CKD stage 2 - stable Recent DIANNE with Cr 4.3 Non oliguric - resolved S/P Renal Bx -Endocarditis related GN On prednisone 40 mg PO QD Has OP appt with Dr. Marie on Sepsis with GPC bacteremia 11/14 Recent discharge On IV Daptomycin per ID NSTEMI-S/p cardiac cath this am Endocarditis (posterior mitral valve leaflet measuring 1.10cm x 0.81cm) on SAVANAH HTN- Stable now Splenic infarcts Cellulitis and track casas upper extremities bilaterally, improved Hx of Urinary retention Hx of IV Drug use- Heroin COMMENT/RELEVANT DATA Meds Current Medications Medications (Trade) Dose Ordered Sig/Diana Start Time Stop Time Status Last Admin Dose Admin Acetaminophen (Tylenol) 650 mg PRN Q4HRS PRN 12/07/18 15:00 Aspirin (Neva Aspirin) 325 mg 1X ONCE 12/07/18 12:45 12/07/18 12:46 DC 12/07/18 12:41 325 MG Aspirin (Ecotrin) 81 mg [id number] 12/08/18 16:00 12/08/18 15:51 81 MG Cefazolin Sodium 2 gm/Dextrose 50 ml @ 100 mls/hr Q8HRS 12/09/18 14:00 UNV Cefazolin Sodium/ Dextrose 50 ml @ 100 mls/hr Q8HRS 12/09/18 14:00 Daptomycin 432 mg/ Sodium Chloride 50 ml @ 100 mls/hr Q24H 12/08/18 10:00 12/09/18 08:56 DC 12/08/18 10:19 100 MLS/HR Diphenhydramine HCl (Benadryl) 25 mg PRN Q6HRS PRN 12/07/18 15:45 12/08/18 17:59 25 MG Furosemide (Lasix) 20 mg 1X ONCE 12/08/18 15:30 12/08/18 15:31 DC 12/08/18 15:51 20 MG Heparin Sodium (Porcine) (Heparin Sodium) 1,800 unit PRN Q6HRS PRN 12/07/18 12:45 12/09/18 07:36 1,800 UNIT Heparin Sodium/ Dextrose 500 ml @ 0 mls/hr CONT PRN 12/07/18 12:45 12/08/18 10:36 26.1 MLS/HR Heparin Sodium/ Sodium Chloride 500 ml @ As Directed STK-MED ONCE 12/09/18 10:31 12/09/18 10:32 DC Info (Anti-Coagulation Monitoring By Pharmacy) 1 each PRN DAILY PRN 12/07/18 15:15 12/09/18 08:46 1 EACH Info (CONTRAST GIVEN -- Rx MONITORING) 1 each PRN DAILY PRN 12/07/18 13:00 12/09/18 12:59 Iohexol (Omnipaque 300 Mg/ml) 100 ml STK-MED ONCE 12/09/18 10:30 12/09/18 10:31 DC Lidocaine HCl (Xylocaine-Mpf 1% 2ml Vial) 2 ml STK-MED ONCE 12/09/18 10:30 12/09/18 10:31 DC Lorazepam (Ativan Inj) 0.5 mg 1X ONCE 12/09/18 10:00 12/09/18 10:01 DC 12/09/18 11:23 0.5 MG Magnesium Sulfate 50 ml @ 25 mls/hr 1X ONCE 12/08/18 10:00 12/08/18 11:59 DC 12/08/18 11:52 25 MLS/HR Nitroglycerin (Nitrostat) 0.4 mg PRN Q5MIN PRN 12/07/18 15:45 12/08/18 15:44 DC Ondansetron HCl (Zofran) 4 mg PRN Q8HRS PRN 12/07/18 15:45 12/08/18 15:44 DC Prednisone (Prednisone) 40 mg DAILY 12/07/18 15:30 12/08/18 10:19 40 MG Trazodone HCl (Desyrel) 50 mg PRN QHS PRN 12/08/18 17:15 12/09/18 00:26 50 MG Lab Laboratory Tests Test 12/08/18 17:18 12/09/18 00:35 12/09/18 05:50 Heparin Anti-Xa Act, Unfractionated 0.21 IU/mL (0.30-0.70) 0.24 IU/mL (0.30-0.70) 0.19 IU/mL (0.30-0.70) Sodium Level 141 mmol/L (136-145) Potassium Level 4.3 mmol/L (3.5-5.1) Chloride Level 104 mmol/L (98-107) Carbon Dioxide Level 27 mmol/L (21-32) Anion Gap 10 (6-14) Blood Urea Nitrogen 27 mg/dL (8-26) Creatinine 1.3 mg/dL (0.7-1.3) Estimated GFR (Cockcroft-Gault) 65.7 Glucose Level 106 mg/dL (70-99) Calcium Level 8.5 mg/dL (8.5-10.1) Magnesium Level 1.7 mg/dL (1.8-2.4) Triglycerides Level 76 mg/dL (0-150) Cholesterol Level 195 mg/dL (0-200) LDL Cholesterol, Calculated 122 mg/dL (0-100) VLDL Cholesterol, Calculated 15 mg/dL (0-40) Non-HDL Cholesterol Calculated 137 mg/dL (0-129) HDL Cholesterol 58 mg/dL (40-60) Cholesterol/HDL Ratio 3.4 Results All relevant outside records, renal labs, imaging studies, telemetry/EKG's were reviewed. HANNAH LOPEZ MD December 09, 2018 11:31
[2018-12-09] MEDS ORDERED: HEPARIN for IV BOLUS 10,000 UNIT/10 ML VIAL. ONE (11:50)
[2018-12-09] MEDS ORDERED: VERAPAMIL 5 MG/2 ML VIAL. ONE (11:50)
[2018-12-09] MEDS ORDERED: NITROGLYCERIN 200 MCG/2 ML SYRINGE FOR CATH/VASC LAB. ONE (11:50)
[2018-12-09] MEDS ORDERED: MIDAZOLAM HCL/PF 2 MG/2 ML VIAL. ONE (11:50)
[2018-12-09] MEDS ORDERED: fentaNYL PF VIAL 100 MCG/2 ML VIAL ONE (11:50)
[2018-12-09] MEDS ORDERED: LIDOCAINE 1% Multi-Dose 20 ML VIAL. ONE (12:05)
[2018-12-09] MEDS ORDERED: MIDAZOLAM HCL/PF 5 MG/5 ML VIAL. ONE (12:05)
[2018-12-09] MEDS ORDERED: fentaNYL PF VIAL 250 MCG/5 ML VIAL ONE (12:05)
[2018-12-09] MEDS ORDERED: NITROGLYCERIN 200 MCG/2 ML SYRINGE FOR CATH/VASC LAB. IART ONE (12:15)
[2018-12-09] MEDS ORDERED: LIDOCAINE 1% Multi-Dose 20 ML VIAL. INJ ONE (12:15)
[2018-12-09] MEDS ORDERED: VERAPAMIL 5 MG/2 ML VIAL. IART ONE (12:15)
[2018-12-09] MEDS ORDERED: fentaNYL PF VIAL 100 MCG/2 ML VIAL IV ONE (12:15)
[2018-12-09] MEDS ORDERED: LIDOCAINE 1% PF 2 ML VIAL. INJ ONE (12:15)
[2018-12-09] MEDS ORDERED: fentaNYL PF VIAL 250 MCG/5 ML VIAL IV ONE (12:15)
[2018-12-09] MEDS ORDERED: HEPARIN for IV BOLUS 10,000 UNIT/10 ML VIAL. IART ONE (12:15)
[2018-12-09] MEDS ORDERED: MIDAZOLAM HCL/PF 2 MG/2 ML VIAL. IV ONE (12:15)
[2018-12-09] MEDS ORDERED: IOHEXOL 300 MG/ML 100ML VIAL. IART ONE (12:15)
[2018-12-09] MEDS ORDERED: MIDAZOLAM HCL/PF 5 MG/5 ML VIAL. IV ONE (12:15)
[2018-12-09] MEDS: IV 1/2 NORMAL SALINE 1,000 ML IV SCH (12:41)
--- NOTE | 2018-12-09 12:41 | PDOC ---
MODERATE SEDATION ASSESSMENT RISKS/ALTERNATIVES Risks/Alternatives Risks and alternatives of this type of sedation and procedure discussed with: RISK/ALTERNATIVES: Patient H & P ON CHART H & P H & P on chart and reviewed for co-morbid conditions and appropriate labs. H&P ON CHART: Yes STATUS PREG STATUS ASSESSED: N/A MEDS/ALLERGIES REVIEWED Meds/Allergies Reviewed Medications and Allergies including time and route of recently administered narcotics and sedatives. MEDS/ALLERGIES REVIEWED: Yes ASA RATING ASA RATING: III AIRWAY ASSESSMENT Airway Assessment Airway patency, oral function limitations, presence of caps, crowns, dentures, partials, and ability to extend neck assessed. AIRWAY ASSESSMENT: Yes MALLAMPATI SCORE MALLAMPATI SCORE: II PRE-SEDATION ASSESSMENT PRE-SEDATION ASSESSMENT: Yes TOPHER WALTON MD December 09, 2018 12:41
[2018-12-09] MEDS ORDERED: NITROGLYCERIN SUBLINGUAL 0.4 MG BOTTLE OF 25. SL PRN (12:45)
--- NOTE | 2018-12-09 13:54 | CARD ---
MR#: [id number] Date of Study: 12/09/2018 Ordering Physician: RYNE PATEL, Referring Physician: TERRY GAITAN Tech: ANJALI MARTÍNEZ RTR APPROVED REPORT Technologist: ANJALI MARTÍNEZ RTR Nurse: MICHELLE RUVALCABA RN Procedure(s) performed: Left heart catheterization and selective coronary angiography Moderate sedation:40 mins Fluoro time: 1.6 mins Dose: 49.9 [id number] Contrast: 107 INDICATION The indication(s) include : non-STEMI . CSHA Clinical Frailty Scale CSHA Clinical Frailty Scale: Mildly Frail Heart Failure Heart Failure: No PROCEDURE NARRATIVE After explaining the risks, benefits and alternative options, informed consent was obtained from irina ent. Patient was brought to the cardiac [employer] and his right wrist was prepped and draped in the us ual fashion after confirming a positive modified Dane's test. Arterial access was obtained in the [facility] radial artery and a 6 [place] sheath was inserted. However, patient had severe radial arterial spa sm that did not resolve with sedation. Hence we decided to change the access site the right common fe moral artery. The the skin and subcutaneous tissues in the previously prepped and draped right groin was infiltrated with 10 mL of 2% lidocaine for local anesthesia. Arterial access was obtained in the right common femoral artery and 6 [place] sheath was inserted. 6 [place] African JL4 and 6 [place] African JR4 catheters were used to perform selective angiographic the left and right coronary arteries. LVEDP and transaor tic gradients remeasured. Patient tolerated the procedure well. Hemostasis in the right groin was ach ieved using manual compression after he failed attempted hemostasis with mynx closure device. Hemosta sis in right groin was achieved using TR band. There were no immediate complications. The following findings were noted. FINDINGS 1. The left main coronary artery arose from the left sinus of Valsalva, gave rise to the left anteri or descending and left circumflex arteries and did not show any significant stenosis. 2. 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 The left sided lef t anterior descending artery was short and ends high in the interventricular groove after giving rise to a large diagonal branch. The other left anterior descending artery arose from the right coronary artery that enters the mid to distal portion of the interventricular groove and supplies the apical w all. 3. The left circumflex artery did not show any significant stenosis. 4. The right coronary artery was a large and dominant vessel, gave rise to the left anterior descend ing artery as described above and did not show any significant stenosis. Conclusion 1. No significant coronary artery disease 2. 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 Recommendations Patient's non-STEMI is most probably type 2/demand ischemia. Recommend medical management. Signed by : Justin Pastor, Electronically Approved : 12/09/2018 13:53:49
[2018-12-09] MEDS ORDERED: ceFAZolin SODIUM 2 GM in IV DEXTROSE 5% 50 ML IV SCH (14:00)
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
[2018-12-09] MEDS: diphenhydrAMINE HCL 25 MG CAPSULE PO PRN (14:34)
[2018-12-09] MEDS: predniSONE 20 MG TABLET PO SCH (14:35)
[2018-12-09] MEDS: ASPIRIN ENTERIC COATED 81 MG TABLET.DR. PO SCH (14:35)
[2018-12-09] MEDS: traMADol 50 MG TABLET PO PRN ×2 (15:43→20:30)
[2018-12-10 02:52] VITALS: BP 144/93
[2018-12-10] MEDS ORDERED: ONDANSETRON PF 4 MG/2 ML VIAL. IV PRN (05:15)
[2018-12-10] MEDS: IV 1/2 NORMAL SALINE 1,000 ML IV SCH ×2 (05:21→22:01)
[2018-12-10] MEDS: traMADol 50 MG TABLET PO PRN ×4 (05:24→22:51)
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
[2018-12-10 07:00] VITALS: BP 130/87
[2018-12-10] MEDS: ASPIRIN ENTERIC COATED 81 MG TABLET.DR. PO SCH (09:22)
[2018-12-10] MEDS: LACTOBACILLUS RHAMNOSUS GG 1 CAPSULE. PO SCH ×2 (09:22→20:31)
[2018-12-10] MEDS: predniSONE 20 MG TABLET PO SCH (09:22)
[2018-12-10 09:40] LABS: HEMATOCRIT 29.1 % (39.0-53.0); HEMOGLOBIN 9.7 g/dL (13.0-17.5); RED BLOOD COUNT 3.13 x10^6/uL (4.30-5.70); RED CELL DISTRIBUTION WIDTH 13.7 % (11.5-14.5); WHITE BLOOD COUNT 15.3 x10^3/uL (4.0-11.0)
[2018-12-10 09:51] LABS: CALCIUM 8.7 mg/dL (8.5-10.1); CREATININE 1.3 mg/dL (0.7-1.3); GFR 65.7; MAGNESIUM 1.6 mg/dL (1.8-2.4); POTASSIUM 4.7 mmol/L (3.5-5.1)
--- NOTE | 2018-12-10 09:59 | PDOC ---
SUBJECTIVE ROS Stable , states still having sharp pains Rt side of chest OBJECTIVE Vital Signs Vital Signs Date Time Temp Pulse Resp B/P (MAP) Pulse Ox O2 Delivery O2 Flow Rate FiO2 12/10/18 07:00 98.4 79 12 130/87 (101) 98 98.4 12/10/18 06:24 Room Air 12/09/18 17:11 2.0 I & 0 Intake and Output 12/10/18 07:00 Intake Total 2400 ml Output Total 9350 ml Balance -6950 ml Intake Oral 2300 ml IV Total 100 ml Output Urine Total 9350 ml PHYSICAL EXAM Physical Exam GENERAL:NAD HENT: OM moist NECK: Supple LUNGS: Clear anteriorly, nonlabored CV: S1 and S2, + murmur ABD: Mildly distended, soft, tender, BS present EXT: No edema, no cyanosis SKIN: Multiple tattoos. No generalized rash. 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 No David, No CV A or SP tenderness DIAGNOSIS/ASSESSMENT Assessment & Plan CKD stage 2 - stable Increased UOP- ?Polyuria, avoid dehydration, Monitor Recent DIANNE with Cr 4.3 Non oliguric - resolved S/P Renal Bx -Endocarditis related GN On prednisone 40 mg PO QD Has OP appt with Dr. Marie on Sepsis with GPC bacteremia 11/14 Recent discharge On IV Daptomycin per ID NSTEMI-S/p cardiac cath this am Recommend fu BMP in 4-5 days with PCP Endocarditis (posterior mitral valve leaflet measuring 1.10cm x 0.81cm) on SAVANAH HTN- Stable now Splenic infarcts Cellulitis and track casas upper extremities bilaterally, improved Hx of Urinary retention Hx of IV Drug use- Heroin COMMENT/RELEVANT DATA Meds Current Medications Medications (Trade) Dose Ordered Sig/Diana Start Time Stop Time Status Last Admin Dose Admin Acetaminophen (Tylenol) 650 mg PRN Q4HRS PRN 12/07/18 15:00 Aspirin (Neva Aspirin) 325 mg 1X ONCE 12/07/18 12:45 12/07/18 12:46 DC 12/07/18 12:41 325 MG Aspirin (Ecotrin) 81 mg [id number] 12/08/18 16:00 12/10/18 09:22 81 MG Cefazolin Sodium 2 gm/Dextrose 50 ml @ 100 mls/hr Q8HRS 12/09/18 14:00 UNV Cefazolin Sodium/ Dextrose 50 ml @ 100 mls/hr Q8HRS 12/09/18 14:00 12/10/18 06:08 100 MLS/HR Daptomycin 432 mg/ Sodium Chloride 50 ml @ 100 mls/hr Q24H 12/08/18 10:00 12/09/18 08:56 DC 12/08/18 10:19 100 MLS/HR Diphenhydramine HCl (Benadryl) 25 mg PRN Q6HRS PRN 12/07/18 15:45 12/09/18 14:34 25 MG Fentanyl Citrate (Fentanyl 2ml Vial) 100 mcg 1X ONCE 12/09/18 12:15 12/09/18 12:19 DC 12/09/18 12:15 100 MCG Fentanyl Citrate (Fentanyl 5ml Vial) 250 mcg 1X ONCE 12/09/18 12:15 12/09/18 12:19 DC 12/09/18 12:15 100 MCG Furosemide (Lasix) 20 mg 1X ONCE 12/08/18 15:30 12/08/18 15:31 DC 12/08/18 15:51 20 MG Heparin Sodium (Porcine) (Heparin Sodium) 2,500 unit 1X ONCE 12/09/18 12:15 12/09/18 12:19 DC 12/09/18 12:15 2,500 UNIT Heparin Sodium/ Dextrose 500 ml @ 0 mls/hr CONT PRN 12/07/18 12:45 12/08/18 10:36 26.1 MLS/HR Heparin Sodium/ Sodium Chloride (HEPARIN for ARTERIAL LINE FLUSH) 1,000 unit 1X ONCE 12/09/18 12:15 12/09/18 12:19 DC 12/09/18 12:15 1,000 UNIT Info (Anti-Coagulation Monitoring By Pharmacy) 1 each PRN DAILY PRN 12/07/18 15:15 12/09/18 08:46 1 EACH Info (CONTRAST GIVEN -- Rx MONITORING) 1 each PRN DAILY PRN 12/07/18 13:00 12/09/18 12:59 DC Iohexol (Omnipaque 300 Mg/ml) 100 ml 1X ONCE 12/09/18 12:15 12/09/18 12:19 DC 12/09/18 12:15 106 ML Lactobacillus Rhamnosus (Culturelle) 1 cap BID 12/10/18 09:00 12/10/18 09:22 1 CAP Lidocaine HCl (Lidocaine 1% 20ml Vial) 20 ml 1X ONCE 12/09/18 12:15 12/09/18 12:19 DC 12/09/18 12:15 10 ML Lidocaine HCl (Xylocaine-Mpf 1% 2ml Vial) 2 ml 1X ONCE 12/09/18 12:15 12/09/18 12:19 DC 12/09/18 12:15 1 ML Lorazepam (Ativan Inj) 0.5 mg 1X ONCE 12/09/18 10:00 12/09/18 10:01 DC 12/09/18 11:23 0.5 MG Magnesium Sulfate 50 ml @ 25 mls/hr 1X ONCE 12/08/18 10:00 12/08/18 11:59 DC 12/08/18 11:52 25 MLS/HR Midazolam HCl (Versed) 2 mg 1X ONCE 12/09/18 12:15 12/09/18 12:19 DC 12/09/18 12:15 2 MG Nitroglycerin (Nitroglycerin) 200 mcg 1X ONCE 12/09/18 12:15 12/09/18 12:19 DC 12/09/18 12:15 200 MCG Nitroglycerin (Nitrostat) 0.4 mg PRN Q5MIN PRN 12/09/18 12:45 Ondansetron HCl (Zofran) 4 mg PRN Q4HRS PRN 12/10/18 05:15 12/10/18 05:25 4 MG Prednisone (Prednisone) 40 mg DAILY 12/07/18 15:30 12/10/18 09:22 40 MG Sodium Chloride 1,000 ml @ 60 mls/hr [id number] 12/09/18 12:41 Tramadol HCl (Ultram) 50 mg PRN Q4HRS PRN 12/09/18 15:45 12/10/18 05:24 50 MG Trazodone HCl (Desyrel) 50 mg PRN QHS PRN 12/08/18 17:15 12/09/18 00:26 50 MG Verapamil HCl (Verapamil) 2.5 mg 1X ONCE 12/09/18 12:15 12/09/18 12:19 DC 12/09/18 12:15 2.5 MG Lab Laboratory Tests Test 12/10/18 09:30 White Blood Count 15.3 x10^3/uL (4.0-11.0) Red Blood Count 3.13 x10^6/uL (4.30-5.70) Hemoglobin 9.7 g/dL (13.0-17.5) Hematocrit 29.1 % (39.0-53.0) Mean Corpuscular Volume 93 fL (79-100) Mean Corpuscular Hemoglobin 31 pg (25-35) Mean Corpuscular Hemoglobin Concent 33 g/dL (31-37) Red Cell Distribution Width 13.7 % (11.5-14.5) Platelet Count 221 x10^3/uL (140-400) Results All relevant outside records, renal labs, imaging studies, telemetry/EKG's were reviewed. HANNAH LOPEZ MD December 10, 2018 09:59
[2018-12-10] MEDS ORDERED: MAGNESIUM SULFATE 2GM 50 ML IV ONE (10:30)
[2018-12-10 11:00] VITALS: BP 124/82
[2018-12-10 15:00] VITALS: BP 142/101
[2018-12-10 19:00] VITALS: BP 125/86
[2018-12-10] MEDS: ACETAMINOPHEN 325 MG TABLET. PO PRN (20:31)
[2018-12-10] MEDS: diphenhydrAMINE HCL 25 MG CAPSULE PO PRN (22:59)
[2018-12-10 23:00] VITALS: BP 132/94
[2018-12-11 03:00] VITALS: BP 116/71
[2018-12-11 07:17] VITALS: BP 110/75
--- NOTE | 2018-12-11 07:57 | NUR ---
Patient stated that he has a court date today, requested that a note be faxed to [facility] to let them know that patient would not be able to attend court today. with patient permission fax was sent to [phone] notifying them of patient admission.
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
[2018-12-11] MEDS ORDERED: DAPTOmycin (GENERIC) IVPB 410 MG in IV NORMAL SALINE 50ML 50 ML IV SCH (08:45)
[2018-12-11] MEDS: predniSONE 20 MG TABLET PO SCH (09:25)
[2018-12-11] MEDS: ASPIRIN ENTERIC COATED 81 MG TABLET.DR. PO SCH (09:25)
[2018-12-11] MEDS: traMADol 50 MG TABLET PO PRN (09:26)
[2018-12-11] MEDS: LACTOBACILLUS RHAMNOSUS GG 1 CAPSULE. PO SCH (09:26)
[2018-12-11] MEDS ORDERED: DAPT350V IV (10:12)
--- NOTE | 2018-12-11 10:37 | PDOC ---
SUBJECTIVE ROS Stable OBJECTIVE Vital Signs Vital Signs Date Time Temp Pulse Resp B/P (MAP) Pulse Ox O2 Delivery O2 Flow Rate FiO2 12/11/18 09:26 Room Air 12/11/18 07:17 98.1 83 18 110/75 (87) 98 98.1 12/11/18 03:00 2.0 I & 0 Intake and Output 12/11/18 07:00 Intake Total 1260 ml Balance 1260 ml Intake Oral 1260 ml # Voids 2 PHYSICAL EXAM Physical Exam GENERAL:NAD HENT: OM moist NECK: Supple LUNGS: Clear anteriorly, nonlabored CV: S1 and S2, + murmur ABD: Mildly distended, soft, tender, BS present EXT: No edema, no cyanosis SKIN: Multiple tattoos. No generalized rash. 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 No David, No CV A or SP tenderness DIAGNOSIS/ASSESSMENT Assessment & Plan CKD stage 2 - stable Increased UOP- ?Polyuria, avoid dehydration, Monitor Recent DIANNE with Cr 4.3 Non oliguric - resolved S/P Renal Bx -Endocarditis related GN On prednisone 40 mg PO QD Reschedule appt with Dr. Marie Post Discharge (had appt for 12/11) Sepsis with GPC bacteremia 11/14 Recent discharge On IV Daptomycin per ID NSTEMI-S/p cardiac cath Endocarditis (posterior mitral valve leaflet measuring 1.10cm x 0.81cm) on SAVANAH HTN- Stable now Splenic infarcts Cellulitis and track casas upper extremities bilaterally, improved Hx of Urinary retention Hx of IV Drug use- Heroin Follow up with Dr. Marie as OP COMMENT/RELEVANT DATA Meds Current Medications Medications (Trade) Dose Ordered Sig/Diana Start Time Stop Time Status Last Admin Dose Admin Acetaminophen (Tylenol) 650 mg PRN Q4HRS PRN 12/07/18 15:00 12/10/18 20:31 650 MG Aspirin (Neva Aspirin) 325 mg 1X ONCE 12/07/18 12:45 12/07/18 12:46 DC 12/07/18 12:41 325 MG Aspirin (Ecotrin) 81 mg [id number] 12/08/18 16:00 12/11/18 09:25 81 MG Cefazolin Sodium 2 gm/Dextrose 50 ml @ 100 mls/hr Q8HRS 12/09/18 14:00 UNV Cefazolin Sodium/ Dextrose 50 ml @ 100 mls/hr Q8HRS 12/09/18 14:00 12/11/18 08:46 DC 12/11/18 06:01 100 MLS/HR Daptomycin 410 mg/ Sodium Chloride 50 ml @ 100 mls/hr Q24H 12/12/18 11:00 Daptomycin 432 mg/ Sodium Chloride 50 ml @ 100 mls/hr Q24H 12/08/18 10:00 12/09/18 08:56 DC 12/08/18 10:19 100 MLS/HR Diphenhydramine HCl (Benadryl) 25 mg PRN Q6HRS PRN 12/07/18 15:45 12/10/18 22:59 25 MG Fentanyl Citrate (Fentanyl 2ml Vial) 100 mcg 1X ONCE 12/09/18 12:15 12/09/18 12:19 DC 12/09/18 12:15 100 MCG Fentanyl Citrate (Fentanyl 5ml Vial) 250 mcg 1X ONCE 12/09/18 12:15 12/09/18 12:19 DC 12/09/18 12:15 100 MCG Furosemide (Lasix) 20 mg 1X ONCE 12/08/18 15:30 12/08/18 15:31 DC 12/08/18 15:51 20 MG Heparin Sodium (Porcine) (Heparin Sodium) 2,500 unit 1X ONCE 12/09/18 12:15 12/09/18 12:19 DC 12/09/18 12:15 2,500 UNIT Heparin Sodium/ Dextrose 500 ml @ 0 mls/hr CONT PRN 12/07/18 12:45 12/10/18 11:08 DC 12/08/18 10:36 26.1 MLS/HR Heparin Sodium/ Sodium Chloride (HEPARIN for ARTERIAL LINE FLUSH) 1,000 unit 1X ONCE 12/09/18 12:15 12/09/18 12:19 DC 12/09/18 12:15 1,000 UNIT Info (Anti-Coagulation Monitoring By Pharmacy) 1 each PRN DAILY PRN 12/07/18 15:15 12/10/18 11:08 DC 12/09/18 08:46 1 EACH Info (CONTRAST GIVEN -- Rx MONITORING) 1 each PRN DAILY PRN 12/07/18 13:00 12/09/18 12:59 DC Iohexol (Omnipaque 300 Mg/ml) 100 ml 1X ONCE 12/09/18 12:15 12/09/18 12:19 DC 12/09/18 12:15 106 ML Lactobacillus Rhamnosus (Culturelle) 1 cap BID 12/10/18 09:00 12/11/18 09:26 1 CAP Lidocaine HCl (Lidocaine 1% 20ml Vial) 20 ml 1X ONCE 12/09/18 12:15 12/09/18 12:19 DC 12/09/18 12:15 10 ML Lidocaine HCl (Xylocaine-Mpf 1% 2ml Vial) 2 ml 1X ONCE 12/09/18 12:15 12/09/18 12:19 DC 12/09/18 12:15 1 ML Lorazepam (Ativan Inj) 0.5 mg 1X ONCE 12/09/18 10:00 12/09/18 10:01 DC 12/09/18 11:23 0.5 MG Magnesium Sulfate 50 ml @ 25 mls/hr 1X ONCE 12/10/18 10:30 12/10/18 12:29 DC 12/10/18 10:30 25 MLS/HR Midazolam HCl (Versed) 2 mg 1X ONCE 12/09/18 12:15 12/09/18 12:19 DC 12/09/18 12:15 2 MG Nitroglycerin (Nitroglycerin) 200 mcg 1X ONCE 12/09/18 12:15 12/09/18 12:19 DC 12/09/18 12:15 200 MCG Nitroglycerin (Nitrostat) 0.4 mg PRN Q5MIN PRN 12/09/18 12:45 Ondansetron HCl (Zofran) 4 mg PRN Q4HRS PRN 12/10/18 05:15 12/10/18 05:25 4 MG Prednisone (Prednisone) 40 mg DAILY 12/07/18 15:30 12/11/18 09:25 40 MG Sodium Chloride 1,000 ml @ 60 mls/hr [id number] 12/09/18 12:41 Tramadol HCl (Ultram) 50 mg PRN Q4HRS PRN 12/09/18 15:45 12/11/18 09:26 50 MG Trazodone HCl (Desyrel) 50 mg PRN QHS PRN 12/08/18 17:15 12/09/18 00:26 50 MG Verapamil HCl (Verapamil) 2.5 mg 1X ONCE 12/09/18 12:15 12/09/18 12:19 DC 12/09/18 12:15 2.5 MG Results All relevant outside records, renal labs, imaging studies, telemetry/EKG's were reviewed. HANNAH LOPEZ MD December 11, 2018 10:37
[2018-12-11] MEDS ORDERED: NORMAL SALINE IV ONE (11:00)
[2018-12-11] MEDS ORDERED: DAPTOMYCIN FOR PT ASSIST PROG IV ONE (11:00)
[2018-12-11 11:10] VITALS: BP 128/76
--- NOTE | 2018-12-11 11:42 | NUR ---
SS following up with discharge planning. SS phoned and faxed scripts and updates clinical to outpatient services, [phone]; fax [phone], for continued IV antibiotics. Pt's RN notified.
[2018-12-11] MEDS: ACETAMINOPHEN 325 MG TABLET. PO PRN (13:36)
--- NOTE | 2018-12-11 14:01 | NUR ---
Discharge Note: QUINTON VILLAGOMEZ [facility]ADSWORTH Discharge instructions and discharge home medications reviewed with Patient and a copy given. All questions have been answered and understanding verbalized. The following instructions and handouts were given: medication lsit, post cath instructions Discontinued lines and drains: double lumen picc line intact. Patient discharged to home with family via ambulation
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
[2018-12-12] MEDS ORDERED: NORMAL SALINE IV SCH (11:00)
[2018-12-12] MEDS ORDERED: DAPTOMYCIN FOR PT ASSIST PROG IV SCH (11:00)
== END 2018-12-11 13:50 | disposition home or self-care (01) | DRG 280 ==
LOC: ER 10:08 → 2 NORTH 13:06
PROVIDERS: ADMIT Internal Medicine; ATTEND Internal Medicine
PROC: 4A023N7 Measurement of Cardiac Sampling and Pressure, Left Heart, Percutaneous Approach (ICD-10-PCS; principal; 2018-12-09)
PROC: B2111ZZ Fluoroscopy of Multiple Coronary Arteries using Low Osmolar Contrast (ICD-10-PCS; 2018-12-09)
DX: I21.A1 Myocardial infarction type 2 (principal); I33.0 Acute and subacute infective endocarditis; I50.33 Acute on chronic diastolic (congestive) heart failure; I13.0 Hypertensive heart and chronic kidney disease with heart failure and stage 1 through stage 4 chronic kidney disease, or unspecified chronic kidney disease; N17.9 Acute kidney failure, unspecified; L03.114 Cellulitis of left upper limb; L03.113 Cellulitis of right upper limb; N18.2 Chronic kidney disease, stage 2 (mild); F32.9 Major depressive disorder, single episode, unspecified; F41.9 Anxiety disorder, unspecified; R33.9 Retention of urine, unspecified; D73.5 Infarction of spleen; E83.42 Hypomagnesemia; N05.9 Unspecified nephritic syndrome with unspecified morphologic changes; B95.62 Methicillin resistant Staphylococcus aureus infection as the cause of diseases classified elsewhere; F11.10 Opioid abuse, uncomplicated; B19.20 Unspecified viral hepatitis C without hepatic coma; Z82.49 Family history of ischemic heart disease and other diseases of the circulatory system; Z80.1 Family history of malignant neoplasm of trachea, bronchus and lung; Z82.5 Family history of asthma and other chronic lower respiratory diseases
CPT/HCPCS: 93458; 99285; G0269; 36415; 71045; 80048; 80053; 80061; 80307; 81001; 82550; 83735; 83880; 84443; 84484; 85007; 85025; 85027; 85520; 87040; 93005; 96374; 99152; 99153; C1769; C1892; J0696; J0878; J1644; J1940; J2060; J2250; J2405; J3010; J3475; J3490; J7512; Q0163; Q9967